=== PATIENT | male | born 1945 | race Caucasian/White ===

== ENCOUNTER 2016-11-28 16:51 | Emergency (ER) | payer OTHER | END 2016-11-28 17:05 | disposition left against medical advice (07) | LOC: CED 16:51 | DX: Z53.21 Procedure and treatment not carried out due to patient leaving prior to being seen by health care provider (principal) ==

== ENCOUNTER 2018-05-09 16:32 | Inpatient (IN) | payer OTHER ==
--- NOTE | 2018-05-09 17:04 | EDPHY ---
H & P Stated Complaint: Lower back pain Time Seen by Provider: 05/09/18 16:44 HPI/ROS: Chief Complaint: Neck pain, back pain, fever HPI: 72-year-old male with a history of lupus on multiple immunosuppressants including cellcept and plaquenil is presenting with neck pain stiffness and some subjective chills at home. He has a history of pinched nerves is neck is initially thought this was this. He has had the symptoms for couple weeks. The last 3 days he has had worsening stiffness in his neck and back. This is not similar to prior lupus flares. He was seen in his orthopedist office who sent him in for concerns about a possible meningitis. X-rays at orthopedist were negative. He has been neurologically intact. Patient states he did not feel well enough to go to work today which is very unusual. Mild headache. No nausea or vomiting. ROS: 10 systems were reviewed and were negative except those elements noted in the HPI. PMH: SLE, on multiple immunosuppressants including Cellcept and Plaquenil Social History: No smoking, no alcohol, no recreational drug use Family History: non-contributory Physical Exam: Gen: Awake, Alert, No Distress, warm to touch HEENT: Nose: no rhinorrhea Eyes: PERRLA, EOMI Mouth: Moist mucosa Neck: Stiff neck, positive meningismus, no JVD Chest: nontender, lungs clear to auscultation Heart: S1, S2 normal, no murmur Abd: Soft, non-tender, no guarding Back: no CVA tenderness, no midline tenderness Ext: no edema, non-tender Skin: no rash Neuro: CN II-XII intact, Sensation grossly intact, Strength 5/5 in bilateral upper and lower extremities - Personal History Current Tetanus/Diphtheria Vaccine: Yes - Medical/Surgical History Hx Asthma: No Hx Chronic Respiratory Disease: Yes Hx Diabetes: No Hx Cardiac Disease: Yes Hx Renal Disease: No Hx Cirrhosis: No Hx Alcoholism: No Hx HIV/AIDS: No Hx Splenectomy or Spleen Trauma: No Other PMH: 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 ortho surgery, LLE tendon repair, R rotator cuff surgery 01/07/2015 - Social History Smoking Status: Never smoked Constitutional: Initial Vital Signs Temperature (C) 37.6 C 05/09/18 16:35 Heart Rate 98 05/09/18 16:35 Respiratory Rate 18 05/09/18 16:35 Blood Pressure 130/84 H 05/09/18 16:35 O2 Sat (%) 95 05/09/18 16:35 O2 Delivery Mode Room Air Allergies/Adverse Reactions: CONTRAST DYE Allergy (Intermediate, Uncoded 05/09/18 16:40) Rash Home Medications: Medication Instructions Recorded Amlodipine Besylate 01/04/14 Aspirin 81mg (OTC) 01/04/14 Doxycycline Calcium 01/04/14 Lipitor 40 mg (RX) 01/04/14 Plaquenil 200 mg (RX) 01/04/14 Ramipril 01/04/14 Medical Decision Making Procedures: Procedure: Lumbar puncture. Indication: Possible meningitis After verbal informed consent from patient explaining the risks including infection, bleeding, and neurologic damage, a lumbar puncture was performed after the patient was prepped and draped in the usual fashion. The back was anesthetized with 1% lidocaine. Approximately 4 cc of clear fluid was obtained. Opening pressure was not obtained. There were no complications. The procedure was performed by myself. ED Course/Re-evaluation: 72-year-old with meningismus and immunosuppression. CSF is concerning. I have discussed with Dr. Bryant, infectious Disease. He is requesting that the patient receive vancomycin 1.5 g q.12 hours, ceftriaxone 2 g q.12 hours, and ampicillin 2 g q.4 hours. He is also requesting enterovirus and HSV. These have been ordered by me. Case discussed with the hospitalist. Will admit to their service for further care. Patient is awake alert and currently without complaint. - Data Points Laboratory Results: Laboratory Results 05/09/18 17:05 05/09/18 17:05 05/09/18 05/09/18 05/09/18 18:28 17:30 17:05 WBC RBC Hgb Hct MCV MCH MCHC RDW Plt Count MPV Neut % (Auto) Lymph % (Auto) [place] % (Auto) Eos % (Auto) Baso % (Auto) Nucleat RBC Rel Count Absolute Neuts (auto) Absolute Lymphs (auto) Absolute Monos (auto) Absolute Eos (auto) Absolute Basos (auto) Absolute Nucleated RBC Immature Gran % Immature Gran # RBC/WBC/PLT Morphology Platelet Estimate Sodium 132 mEq/L L mEq/L (135-145) Potassium 4.5 mEq/L mEq/L (3.3-5.0) Chloride 96 mEq/L L mEq/L (97-110) Carbon Dioxide 23 mEq/l mEq/l (22-31) Anion Gap 13 mEq/L mEq/L (6-14) BUN 16 mg/dL mg/dL (7-23) Creatinine 0.6 mg/dL L mg/dL (0.7-1.3) Estimated GFR > 60 Glucose 175 mg/dL H mg/dL (70-100) Calcium 8.7 mg/dL mg/dL (8.5-10.4) Fl Pathologist Review Pending CSF Tube Number 4 CSF Appearance CLEAR (CLEAR) CSF Color COLORLESS (COLORLESS) CSF Supernatant COLORLESS (COLORLESS) CSF WBC 19 /mm3 H /mm3 (0-5) CSF RBC 2 /mm3 H /mm3 (0-0) CSF Neutrophils % 23 % H % (0-6) CSF Lymphocytes % 47 % % (0-100) CSF Monos/Macrophage % 30 % % (0-45) CSF Glucose 71 mg/dL mg/dL (50-75) CSF Total Protein 68 mg/dL H mg/dL (12-60) Nasal Influenza A PCR Pending Nasal Influenza B PCR Pending 05/09/18 17:05 WBC 10.76 10^3/uL H 10^3/uL (3.80-9.50) RBC 3.48 10^6/uL L 10^6/uL (4.40-6.38) Hgb 11.7 g/dL L g/dL (13.7-17.5) Hct 33.7 % L % (40.0-51.0) MCV 96.8 fL fL (81.5-99.8) MCH 33.6 pg pg (27.9-34.1) MCHC 34.7 g/dL g/dL (32.4-36.7) RDW 12.1 % % (11.5-15.2) Plt Count 103 10^3/uL L 10^3/uL (150-400) MPV 10.3 fL fL (8.7-11.7) Neut % (Auto) 92.3 % H % (39.3-74.2) Lymph % (Auto) 3.1 % L % (15.0-45.0) [place] % (Auto) 4.1 % L % (4.5-13.0) Eos % (Auto) 0.0 % L % (0.6-7.6) Baso % (Auto) 0.1 % L % (0.3-1.7) Nucleat RBC Rel Count 0.0 % % (0.0-0.2) Absolute Neuts (auto) 9.93 10^3/uL H 10^3/uL (1.70-6.50) Absolute Lymphs (auto) 0.33 10^3/uL L 10^3/uL (1.00-3.00) Absolute Monos (auto) 0.44 10^3/uL 10^3/uL (0.30-0.80) Absolute Eos (auto) 0.00 10^3/uL L 10^3/uL (0.03-0.40) Absolute Basos (auto) 0.01 10^3/uL L 10^3/uL (0.02-0.10) Absolute Nucleated RBC 0.00 10^3/uL 10^3/uL (0-0.01) Immature Gran % 0.4 % % (0.0-1.1) Immature Gran # 0.04 10^3/uL 10^3/uL (0.00-0.10) RBC/WBC/PLT Morphology TNP Platelet Estimate TNP Sodium Potassium Chloride Carbon Dioxide Anion Gap BUN Creatinine Estimated GFR Glucose Calcium Fl Pathologist Review CSF Tube Number CSF Appearance CSF Color CSF Supernatant CSF WBC CSF RBC CSF Neutrophils % CSF Lymphocytes % CSF Monos/Macrophage % CSF Glucose CSF Total Protein Nasal Influenza A PCR Nasal Influenza B PCR Microbiology Results: MICROBIOLOGY 05/09/18 17:30 Cerebral Spinal Fluid Gram Stain - Final Medications Given: Discontinued Medications Sodium Chloride (Ns) 1,000 mls @ 0 mls/hr IV EDNOW ONE; Wide Open PRN Reason: Protocol Stop: 05/09/18 17:48 Last Admin: 05/09/18 17:48 Dose: 1,000 mls Departure - Departure Disposition: [facility] Inpatient Acute Condition: Fair Instructions: Bacterial Meningitis (ED) Referrals: MICHELE FREDERICK [Primary Care Provider] - As per Instructions
[2018-05-09 17:24] LABS: PLATELET COUNT 103 10^3/uL (150-400)
[2018-05-09] MEDS ORDERED: NS 1,000 ML IV ONE (17:47)
[2018-05-09] MEDS ORDERED: AMPICILLIN SODIUM 2 GM in NS 100 ML IV ONE (19:03)
[2018-05-09] MEDS ORDERED: VANCOMYCIN 1.5 GM in D5W 250 ML IV ONE (19:03)
[2018-05-09] MEDS ORDERED: DIAZEPAM 5 MG/ML 1 ML SYR ONE (19:17)
[2018-05-09] MEDS ORDERED: DIAZEPAM 5 MG/ML 1 ML SYR IVP ONE (19:21)
[2018-05-09] MEDS ORDERED: ONDANSETRON 4 MG/2 ML VIAL IVP PRN (21:07)
--- NOTE | 2018-05-09 21:23 | GHP ---
DATE OF ADMISSION: 05/09/2018 CHIEF COMPLAINT: Neck pain. HISTORY OF PRESENT ILLNESS: This is a 72-year-old male with history of lupus, on Plaquenil and mycop henolate, who was referred to the emergency department by his orthopedic surgeon after being evaluate d for neck pain earlier today. Patient states that he has been having worsening neck pain over the p ast week. He went to see his orthopedic surgeon, where he had x-rays done that did not reveal a caus e for his pain. He then developed some pretty significant chills and was sent to the emergency depar tme for further evaluation. During the time of my exam, he denies any headache. He denies any fev ers. He does feel chilled. Denies any new numbness, weakness. PAST MEDICAL HISTORY: 1. SLE. 2. Possible Lyme disease. 3. Hypertension. PAST SURGICAL HISTORY: Hamstring repair in 2013, right shoulder surgery. HOME MEDICATIONS: Amlodipine, ramipril, Plaquenil, Lipitor, doxycycline, aspirin, mycophenolate. ALLERGIES: Contrast dye. 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 Denies any alcohol, tobacco, or illicit drug use. FAMILY HISTORY: Reviewed and noncontributory. REVIEW OF SYSTEMS: Comprehensive 10-point review of systems was done and is negative, except as ment ioned in HPI. PHYSICAL EXAM: VITAL SIGNS: Blood pressure 121/70; pulse of 84; respiratory rate 18; O2 sat 88% on room air, 94% on 2 L. GENERAL: No acute distress. HEAD: Normocephalic, atraumatic. NECK: Rigid. CARDIOVASCULAR: S1, S2. No murmurs, rubs, clicks, gallops. No JVD. No lower extremity edema. P ULMONARY: Lungs are clear. No wheezes, rales, or rhonchi. ABDOMEN: Soft, nontender, nondistended. No guarding or rebound tenderness. Normoactive bowel sounds. EXTREMITIES: No clubbing or cyanosi s. NEURO: Cranial nerves 2 through 12 grossly intact. No focal motor or sensory deficits. SKIN: There is hyperpigmentation of the legs attributed to Plaquenil use. DIAGNOSTICS: WBC 10.76, hemoglobin 11.7, hematocrit 33.7, platelets 103. Sodium 132, potassium 4.5, chloride 96, BUN 16, creatinine 0.6, glucose 175. Influenza was negative. CSF was reviewed showing 19 WBCs 23% neutrophils. Protein was high at 68% with a glucose of 71. ASSESSMENT AND PLAN: 1. This is a 72-year-old immunosuppressed male on mycophenolate and Plaquenil presenting with neck s tiffness, most likely due to aseptic meningitis. a. Plan: The patient will be admitted to the medical-surgical floor. I discussed the case with Dr. Greenberg in the emergency department, who discussed the case with Dr. Herbert Bryant of Infectious Disease, who recommended ampicillin, ceftriaxone, and vancomycin, which will be continued until his cultures a re resulted. 2. History of systemic lupus erythematosus. 3. History of hypertension. a. Plan is to continue home medications. 4. Mild anemia, some signs of bleeding. 5. Mild hyponatremia. a. Plan: Will continue to monitor serum sodium. 6. Patient will be admitted to the hospital under inpatient status. /[id number]/MODL
[2018-05-09] MEDS: ACETAMINOPHEN 325 MG TAB PO PRN (21:56)
[2018-05-09] MEDS: DOXYCYCLINE HYCLATE 100 MG CAP/TAB PO SCH (22:30)
[2018-05-10] MEDS: AMPICILLIN SODIUM 2 GM in NS 100 ML IV SCH ×3 (02:06→10:49)
[2018-05-10] MEDS ORDERED: VANCOMYCIN 1.25 GM in NS 250 ML IV ONE (04:00)
[2018-05-10] MEDS: ACETAMINOPHEN 325 MG TAB PO PRN (05:23)
[2018-05-10 05:46] LABS: PLATELET COUNT 83 10^3/uL (150-400)
[2018-05-10] MEDS: RAMIPRIL 5 MG CAP PO SCH (09:30)
[2018-05-10] MEDS: amLODIPine BESYLATE 5 MG TAB PO SCH (09:31)
[2018-05-10] MEDS: ASPIRIN EC 81 MG TAB PO SCH (09:31)
[2018-05-10] MEDS: DOXYCYCLINE HYCLATE 100 MG CAP/TAB PO SCH ×2 (09:31→21:27)
--- NOTE | 2018-05-10 12:16 | ASMTCMCOM ---
CM Note CM Note Notes: Pt is a 72 y/o man admitted for meningitis. Pt has a hx of lupus, plaquenil and mycophenolate. ID has been consulted. Needs are TBD at this time. CM to follow. Plan: TBD Date Signed: 05/10/2018 12:15 PM Electronically Signed By:HECTOR Charles
--- NOTE | 2018-05-10 13:03 | GCON ---
INFECTIOUS DISEASE CONSULTATION DATE OF CONSULTATION: 05/10/2018 REFERRING PHYSICIAN: Miki Briones DO REASON FOR CONSULTATION: Meningitis. HISTORY OF PRESENT ILLNESS: Patient is a 72-year-old male with a past medical history of lupus on ch ronic Plaquenil and CellCept who I am asked to see in consultation for meningitis. Patient describes approximately 10 days ago that he was pushing a sled at the [facility] after which he developed neck pain. This pain had become progressive and was associated with neck stiffness. Over the last 2 days, he has had concomitant rigors, but does not feel like he has had any fever. He also has developed left- sided flank pain. He has had mild associated headache, but this has not been severe. Yesterday, he was seen by his orthopedic surgeon and recommended further evaluation in the emergency department. In the emergency department, he was noted to have a mild leukocytosis and mild thrombocytopenia with left shift. Given his neck pain, a lumbar puncture was performed, which showed 19 white blood cells with 23% neutrophils, 47% lymphocytes, 30% monocytes, glucose 71, protein 68 with negative gram stain . I was contacted based on his CSF findings and recommended empiric vancomycin, ampicillin, and ceft riaxone pending further data given his underlying immune suppression. Blood cultures were obtained a nd now 1 of 2 sets is showing growth of a streptococcal species, which by BCID is not group A, group B, or Streptococcus pneumoniae. Patient has been chronically on doxycycline for many years related t o his underlying lupus and prior diagnosis of Lyme disease. He has not experienced nausea, vomiting, or diarrhea. No recent skin injuries. No recent dental problems or dental work. The patient trave ls frequently on a domestic basis. Travel has included [place]. Given the above findings, I am now asked to assist in his ongoing management. PAST MEDICAL HISTORY: Lupus, hypertension, hyperlipidemia, hypercoagulability, Lyme disease. PAST SURGICAL HISTORY: Ruptured hamstring repair, rotator cuff surgery. CURRENT MEDICATIONS: Vancomycin 1.25 g IV q.8 hours, ampicillin 2 g IV q.4 hours, ceftriaxone 2 g IV q.12 hours, Norvasc 5 mg p.o. daily, aspirin 81 mg p.o. daily, Lipitor 40 mg p.o. q.h.s., doxycyclin e 50 mg p.o. b.i.d., ramipril 5 mg p.o. daily. ALLERGIES: CT contrast dye causes rash; patient does not think he has had any difficulty with MRI co ntrast dye. SOCIAL HISTORY: Patient does not smoke. He drinks alcohol twice weekly. No drug use. Travels freq uently throughout [facility], including [place], [place], [place], [place], [place]. No animal exposures. REVIEW OF SYSTEMS: Outside that noted in the HPI, the remainder of 10-system review is unremarkable. FAMILY HISTORY: Hypertension. PHYSICAL EXAMINATION: VITAL SIGNS: Temperature maximum 37.8, temperature current 36.7, heart rate 8 1, respiratory rate 18, blood pressure 119/64. GENERAL: Patient is well nourished, well developed i n no acute distress. He appears nontoxic. HEENT: There is no scleral icterus, conjunctival injecti on, or conjunctival petechiae. Oropharynx shows dry mucous membranes. Dentition is in fair repair. There is no nasal discharge. There is no tenderness over the frontal, maxillary, or mastoid area. NECK: There is point tenderness over the cervical spine. There is tenderness with flexion of the ce rvical spine. No lymphadenopathy or palpable thyromegaly. CHEST: Clear to auscultation bilaterally without adventitious sounds. The respiratory effort is normal. CARDIOVASCULAR: Regular rate and r hythm with a 2/6 systolic murmur heard throughout. No gallops or rubs noted. ABDOMEN: Soft, nonten carmelo, nondistended. There is no palpable organomegaly. Bowel sounds are present. BACK: There is no flank tenderness. MUSCULOSKELETAL: There is no tenderness over the left buttock or thigh. There i s no edema present. No cyanosis or clubbing present. Finger joint deformities present. SKIN: Ther e is violaceous hyperpigmentation bilaterally over the lower extremities which is chronic; no stigmat a of endocarditis. Skin is warm and dry to touch. NEUROLOGIC: The patient is alert and interacts a ppropriately with examiner. Cranial nerves 2-12 are grossly intact. Sensation is grossly intact. M uscle tone and bulk are normal. LYMPHATICS: No cervical or supraclavicular nodes. LABORATORY DATA: White blood cell count 9.6, hematocrit 30.7, platelets 83, neutrophils 89%. Serum creatinine is 0.7, bicarbonate 23. CSF showing 19 white blood cells, 2 red blood cells, 23% neutroph ils, 47% lymphocytes, 30% monocytes, glucose 71, protein 68. Influenza PCR is negative. CSF meningo encephalitis PCR panel was pending at [facility]. CSF Gram stain is negative with culture p ending. Blood cultures showing 1 of 2 sets with Streptococcus species not identified as group A, B, or pneumococcus by PCR testing. IMPRESSION: 1. Meningitis: Given the patient's presentation primarily with neck pain and rigors, I have concern s this may represent a parameningeal inflammatory process, particularly in light of patient's concomi tant bacteremia. Patient does not have headache as a prominent symptom as would typically be expecte d with meningitis. Given the patient's immunosuppression, he is at risk for meningitis, including op portunistic pathogens. Currently, he has a meningoencephalitis panel pending at [facility]. Given the positive blood culture, suspect other pathogen, such as Listeria or Streptococcus pneumon iae are unlikely. Patient will need MRI of the cervical spine to further assessed for process, such as diskitis, vertebral osteomyelitis, or epidural abscess. Viral etiologies or fungi, such as Crypto coccus or Coccidioides would be in the differential, although I suspect fungal etiology will be unlik gregorio. 2. Bacteremia: Most likely, this will be either an oropharyngeal strep versus streptococcal species , such as group C or G. Will continue ceftriaxone at doses that penetrate cerebrospinal fluid pendin g further evaluation. 3. Flank pain: Unclear etiology. No real findings on exam. If this persists, may ultimately need further imaging of this area to ensure no evidence of a focal process, such as psoas abscess. 4. Thrombocytopenia: No prior lab values to assess if this is related to his underlying lupus or co mponent of his infectious presentation. 5. Reported history of Lyme disease: Discussed briefly with patient that chronic Lyme disease is no t felt to be a distinct entity. RECOMMENDATIONS: 1. Continue ceftriaxone 2 g IV q.12 hours. 2. Discontinue vancomycin and ampicillin. 3. MRI of the cervical spine with IV contrast. 4. Await CSF meningoencephalitis panel from [facility]. 5. Follow up blood culture identification and susceptibility as available. 6. If flank pain persists, consider CT scan of abdomen and pelvis versus pelvic MRI to assess for et iology. 7. Followup CSF Gram stain and culture as available. 8. Further diagnostic testing based on above evaluation and clinical course. Thank you for this consultation. We will continue to follow the patient with you. /[id number]/MODL
[2018-05-10] MEDS ORDERED: GADOBUTROL 10 ML VIAL IVP ONE (13:20)
[2018-05-10] MEDS ORDERED: VANCOMYCIN 1.25 GM in NS 250 ML IV SCH (13:30)
--- NOTE | 2018-05-10 14:30 | HOSPPROG ---
Hospitalist Progress Note Assessment/Plan: 72yo M with SLE on immunosuppressants presents with several days of chills and worsening neck pain found to have meningitis and bacteremia. #Meningitis: Mild pleocytosis with increased neutrophils on CSF, gram stain negative for organisms. He is bacteremic as below and we will target treatment at that for now. Reports significant neck discomfort that warrants further evaluation. Otherwise, neurologically intact. He is at risk for opportunistic infections. - Meningoencephalitis panel pending, follow up CSF cultures - CTX 2g IV q12h - MRI cervical spine #Streptococcal bacteremia: Not group A, B, or pneumococcus. Possibly viridans. No clear oropharyngeal or GI source. He is not septic. - Antibiotics and imaging as above - Consider TTE - Will need repeat blood cultures to eval for clearance #Thrombocytopenia: Suspect medication induced. Not floridly septic to suspect consumption. No prior for comparison. Monitor daily. #Hyponatremia, mild: C/w hypovolemia. IVF and monitor. #Transaminitis: Likely medication (plaq, MMF) related. No e/o biliary obstruction. Trend. #SLE: No acute flare. Holding plaquenil, mycophenolate until infection controlled but should be restarted soon. #Chronic resp insufficiency: On baseline 2L. Suspect SLE-related ILD vs PH. Followed at [facility]. #Pulmonary hypertension: RVSP 35 on 2014 TTE. #CAD: No stent placement. Cont asa/statin. #HTN: Home meds. Dispo: Remain inpatient for management of above with IV antibiotics, further diagnostic studies. Subjective: Overall feeling ok, still with neck discomfort. Denies oral lesions/ infection, GI issues as of late. No fevers since admission. Objective: Vital Signs Temp Pulse Resp BP Pulse Ox 36.6 C 71 14 120/65 88 L 05/10/18 12:00 05/10/18 12:00 05/10/18 12:00 05/10/18 12:00 05/10/18 12:00 Laboratory Results 05/10/18 04:51 05/10/18 04:51 05/09/18 05/10/18 05/11/18 05:59 05:59 05:59 Intake Total 1600 Output Total 325 Balance 1275 - Physical Exam Constitutional: no apparent distress, appears nourished, not in pain Eyes: PERRL, anicteric sclera, EOMI Ears, Nose, Mouth, Throat: moist mucous membranes, hearing normal, ears appear normal, no oral mucosal ulcers Cardiovascular: regular rate and rhythym, no murmur, rub, or gallop, other ( prominent S2) Respiratory: no respiratory distress, other (occasional dry cough (chronic)) Gastrointestinal: normoactive bowel sounds, soft, non-tender abdomen, no palpable masses Genitourinary: no bladder fullness, no bladder tenderness, no renal bruits Skin: other (hyperpigmentation of BLE) Musculoskeletal: full muscle strength, no muscle tenderness, normal joint ROM Neurologic: AAOx3, sensation intact bilaterally Psychiatric: interacting appropriately, not anxious, not encephalopathic, thought process linear ICD10 Worksheet Patient Problems: Problems Problem Status Onset Meningitis Acute - ICD10 Problem Qualifiers (1) Meningitis
[2018-05-10] MEDS ORDERED: DIAZEPAM 5 MG TAB PO PRN (14:45)
--- NOTE | 2018-05-10 17:44 | PCMIDPN ---
Assessment/Plan: Please see my consultation earlier today for full details. Assessment/Plan: * C 1-2 prevertebral abscess with concomitant epidural inflammatory change: MRI shows evidence of prevertebral abscess with mild epidural inflammatory change. Likely associated with streptococcal bacteremia. Will obtain both ENT and neurosurgical consultations based on this finding. Patient with persistent left hip and pelvic pain. Will proceed with MRI of left hip and pelvis to assess for other foci of infection in the setting of bacteremia. Continue ceftriaxone 2 g IV q.12 hours. * CSF pleocytosis: CSF meningoencephalitis panel at [facility] is negative. Suspect pleocytosis likely represents parameningeal inflammatory process from prevertebral abscess and anterior epidural inflammatory change. 05/10/18 17:42 Objective: Vital Signs Temp Pulse Resp BP Pulse Ox 36.6 C 78 18 140/69 H 92 05/10/18 15:58 05/10/18 15:58 05/10/18 15:58 05/10/18 15:58 05/10/18 15:58 Laboratory Results 05/10/18 04:51 05/10/18 04:51 05/09/18 05/10/18 05/11/18 05:59 05:59 05:59 Intake Total 1600 Output Total 325 Balance 1275 ICD10 Worksheet Patient Problems: Problems Problem Status Onset Meningitis Acute
--- NOTE | 2018-05-10 19:51 | GCON ---
DATE OF CONSULTATION: 05/10/2018 HISTORY OF PRESENT ILLNESS: The patient is a 72-year-old gentleman with a history of lupus, who is on Plaquenil and CellCept. He was admitted to the hospital yesterday for possible meningitis. He had had 10 days of neck pain prior to admission with associated neck stiffness. He also feels that his right ear is slightly full feeling. We were consulted because of a small C1-C2 prevertebral abscess found on imaging. The patient is currently being seen by Dr. Herbert Bryant, and antibiotics have been started. Cell counts obtained showed leukocytosis and mild thrombocytopenia. PAST MEDICAL HISTORY: Significant for lupus, hypertension, hyperlipidemia, hypercoagulability, and Lyme disease. PAST SURGICAL HISTORY: A hamstring repair and rotator cuff surgery. CURRENT MEDICATIONS: Include vancomycin, ampicillin, and ceftriaxone as well as doxycycline plus is normal outpatient medications. ALLERGIES: To CT contrast dye. SOCIAL HISTORY: Patient is a nonsmoker. PHYSICAL EXAMINATION: GENERAL: Patient is alert and orientated, in no acute distress. HEAD: Atraumatic, normocephalic. EARS: EACs were clear. TMs were healthy and intact. NOSE: Clear. ORAL CAVITY: Oropharynx with severe dry mouth. NECK: Supple without any adenopathy. IMAGING: Review of his MRI shows a 3 x 0.5 cm perivertebral abscess at the level of C1-C2. This was reviewed with Dr. Chavez. ASSESSMENT AND PLAN: Patient with a small prevertebral abscess at C1-C2. Given the size, I feel that antibiotic treatment should be sufficient. Should anything worsen, please contact us. This case has been reviewed with Dr. Placido Chavez. I evaluated the images personally and the area of concern is very thin. There is not likely a drainable fluid collection. Given the site and difficulty in accessing the area, I feel it best to continue to treat with IV antibiotics, and re-evaluate if there is not response to the treatment. thank you, Placido Chavez MD /[id number]/MODL MTDD
--- NOTE | 2018-05-10 20:06 | GCON ---
NEUROSURGICAL CONSULTATION CHIEF COMPLAINT: Neck pain and stiffness. HISTORY OF PRESENT ILLNESS: Mr. Valles is a 72-year-old male with a history of lupus, for which he is on chronic Plaquenil and CellCept. He was working out at the [email or web address] several days ago when he dev eloped neck pain. Thereafter, he developed neck stiffness and rigors. He was evaluated in the emerg ency department, and his symptoms were suspicious for meningitis. An LP was obtained which showed 19 white cells, and he was started on empiric vancomycin, ampicillin, and ceftriaxone. The blood cultu res were subsequently positive for streptococcal species. An MRI of the cervical spine was obtained. This demonstrated some prevertebral soft tissue swelling from the clivus down to C3, and neurosurgi [place] consultation was requested. The patient currently complains of ongoing neck pain and stiffness. He does feel better than he did yesterday. He denies any upper extremity radicular pain, weakness, paresthesias, bowel/bladder problems, or ataxia. PAST MEDICAL HISTORY: 1. Lupus. 2. Hypertension. 3. Hyperlipidemia. 4. Hypercoagulability. 5. Lung disease. PAST SURGICAL HISTORY: Includes: 1. Ruptured hamstring repair. 2. Rotator cuff surgery. MEDICATIONS: Prior to admission are ramipril, doxycycline, Lipitor, aspirin, Norvasc. He is current ly on vancomycin, ampicillin, and ceftriaxone. ALLERGIES: CT contrast dye, which causes a rash. FAMILY HISTORY: Patient has no family history of spine problems. SOCIAL HISTORY: Patient is with grown children. He does not smoke, but does drink alcohol a pproximately twice weekly. He denies recreational drug use. REVIEW OF SYSTEMS: Negative. PHYSICAL EXAM: GENERAL: The patient is a 72-year-old male lying in bed in a mild amount of distress . HEAD, EYES, EARS, NOSE, AND THROAT: Negative to drainage. EXTREMITIES: [place], warm, and dry. NE UROLOGICAL: Patient is awake, alert, oriented x4. Pupils equal, round, reactive to light. Extraocu lar motions are intact. There is no evidence of facial droop. Tongue and uvula are midline. Spinal access muscles are intact. His motor strength is 5/5 in all muscle groups of his upper and lower ex tremities bilaterally. Sensation is grossly intact to light touch in his upper and lower extremities bilaterally. Deep tendon reflexes are 1/4 in the bilateral biceps, triceps, brachioradialis, patell ar, and Achilles. There is a negative Leeann's with no clonus. DIAGNOSTIC STUDIES: An MRI of the cervical spine from [facility] on 05/10/2018, shows preservation of the sagittal alignment. There are moderate multilevel degenerative changes. There is some prevertebral soft tissue enhancement and swelling that extends from the anterior portio n of C4 through C1 and toward the clivus. This also extends laterally toward the lateral masses of C 1 bilaterally. IMPRESSION: This is a 72-year-old male with neck pain, rigors, who has meningitis and a streptococca l bacteremia. His MRI shows a prevertebral soft tissue swelling enhancement from C4 through the cliv us, but he does not have any evidence of an epidural abscess at this point in time. He is neurologic ally stable. PLAN: All the above discussed in detail with the patient and his . This patient was seen and ex amined with Dr. Sanon. At this point time, the patient does feel slightly better since he martinez s been on the IV antibiotics. This prevertebral soft tissue swelling does not appear to involve any type of epidural abscess so we will follow him on a conservative basis. Should he have persistent fe vers or bacteremia, then we will consider a repeat MRI of the cervical spine with possible surgical i ntervention. For now, we will follow him and his progress. He may benefit from some p.o. muscle rel axant medications for his ongoing neck stiffness. Please call with any neurologic neurological darling genaro. /[id number]/MODL
[2018-05-10] MEDS: ATORVASTATIN CALCIUM 40 MG TAB PO SCH (21:27)
[2018-05-11] MEDS: ACETAMINOPHEN 325 MG TAB PO PRN (05:15)
--- NOTE | 2018-05-11 07:39 | SOAPPROG ---
SOAP Progress Note Assessment/Plan: Assessment: 72 yo M with meningitis, strep bacteremia and prevertebral soft tissue enhancement from clivus - C4 Plan: Neuro: stable and doing well overall. no evidence of epidural abscess on imaging so we will follow for now leukocytosis improved, no more fevers, on rocephin PT/OT/ST will continue to follow please call with neuro changes discussed with Dr Humphreys 05/11/18 07:34 05/11/18 07:40 Subjective: neck stiffness about the same, no arm pain, no weakness. Objective: Vital Signs Temp Pulse Resp BP Pulse Ox 37.0 C 69 16 120/62 90 L 05/11/18 04:00 05/11/18 04:00 05/11/18 04:00 05/11/18 04:00 05/11/18 04:00 Laboratory Results 05/11/18 05:00 05/11/18 05:24 05/10/18 05/11/18 05/12/18 05:59 05:59 05:59 Intake Total 1600 650 Output Total 325 Balance 1275 650 AAOx4, +FC PERRL, EOMI, no facial droop 5/5 + light touch ICD10 Worksheet Patient Problems: Problems Problem Status Onset Meningitis Acute
[2018-05-11] MEDS: DOXYCYCLINE HYCLATE 100 MG CAP/TAB PO SCH ×2 (07:49→21:28)
[2018-05-11] MEDS: ASPIRIN EC 81 MG TAB PO SCH (07:50)
[2018-05-11] MEDS: RAMIPRIL 5 MG CAP PO SCH (07:50)
[2018-05-11] MEDS: amLODIPine BESYLATE 5 MG TAB PO SCH (07:51)
--- NOTE | 2018-05-11 09:38 | PCMIDPN ---
Assessment/Plan: 1. Streptococcal bacteremia with prevertebral abscess at C1/C2 in immunocompromised host: Etiology of bacteremia unclear. Streptococcus has yet to be speciated. Patient reports last colonoscopy was approximately 3 years ago, and was normal. Does have a recent 30 lb weight loss, but states that this was intentional. Also has prominent heart murmur on exam; will check TTE for completeness. Repeat blood cultures today, as well as baseline inflammatory markers. Continue high-dose ceftriaxone as is. 2. Mild left pelvic pain: MRI of the pelvis and hip ordered. Over 25 min spent with this patient today. Subjective: Patient states his neck pain is better today. Still having some mild left hip discomfort, which he states has been going on for 2-3 weeks now. Reports last colonoscopy 3 years ago, and was normal. No history of endocarditis. Objective: Ceftriaxone 2 g IV q.12 hours day 2 Afebrile Vital Signs Temp Pulse Resp BP Pulse Ox 36.3 C 68 12 118/66 92 05/11/18 08:00 05/11/18 08:00 05/11/18 08:00 05/11/18 08:00 05/11/18 08:00 Laboratory Results 05/11/18 05:00 05/11/18 05:24 05/10/18 05/11/18 05/12/18 05:59 05:59 05:59 Intake Total 1600 650 Output Total 325 Balance 1275 650 Blood cultures May 09 x2 Gram-positive cocci in chains - Physical Exam General Appearance: alert, no apparent distress EENT: other (Dry mucous debris throughout oropharynx. No obvious oral lesions.) , No scleral icterus Neck: supple Cardiac/Chest: systolic murmur (Alger best at apex) Extremities: other (Left hip with full range of motion, no obvious overlying skin changes or swelling.) Abdomen: non-tender, soft Skin: other (Hyper pigmentation lower extremity secondary to chronic Plaquenil use. No stigmata of endocarditis) Neuro/Psych: oriented x 3 ICD10 Worksheet Patient Problems: Problems Problem Status Onset Meningitis Acute
--- NOTE | 2018-05-11 16:27 | ECHO ---
[email or web address] [address] [address] Main: [phone] Fax: Transthoracic Echocardiogram Name: MY HOLM MR#: [id number] Study Date: 05/11/2018 Study Time: 10:09 AM Date of : 1945 Age: 72 year(s) Height: 175.3 cm (69 in.) Weight: 78.47 kg (173 lb.) BSA: 1.94 m2 Gender: Male Examination: Echo Indication: Streptococcal bactermia, prevertebral abscess, Eval for endocarditis Image Quality: Contrast: Requested by: Hien Lock BP: 118 mmHg/66 mmHg Heart Rate: Rhythm: Indication: Streptococcal bactermia, prevertebral abscess, Eval for endocarditis Procedure Staff Doubling Machine Operator: Reji Sorenson RDCS Reading Physician: Dmitry Bernal MD Requesting Provider: Conclusions: Normal size left ventricle. Normal global systolic LV function. EF is 66 %. The left atrium is moderately dilated. There is posterior mitral anular calcification. The posterior mitral valve leaflet is thickened with reduced motion. There is moderate mitral regurgitation. Can not exclude a vegetation on this valve.. There is mild thickening of the aortic cusps. No aortic valve stenosis is present. There is no aortic valve regurgitation. Right Ventricular systolic pressure is measured at 62 mmHg. When compared to the 07/05/17 study. Pulmonary hypertension is now appreciated. Aortic and mitral valve findings are similiar. Consdier SHELTON to further evaluate the patients condition given aortic and mitral valve are difficult to evaluate given calcification and leaflet thickening. Measurements: Chambers Valvular Assessment AV/MV Valvular Assessment TV/PV Normal Normal Normal Name Value Range Name Value Range Name Value Range Ao Kavita (MM): 3.9 cm (2.2 cm-3.7 AV Vmax: 1.86 m/s (1 m/s-1.7 TR Vmax: 3.76 mm/s ( - ) cm) m/s) TR PGmax: 57 mmHg ( - ) IVSd (2D): 1.0 cm (0.6 cm-1.1 AV maxP mmHg ( - ) syst. PAP: 62 mmHg ( - ) cm) AV meanP mmHg ( - ) PV Vmax: 0.81 m/s (0.6 m/s-0.9 LVDd (2D): 5.1 cm (4.2 cm-5.9 PETER (VTI): 1.9 cm ( - ) m/s) cm) MV E Vmax: 1.22 m/s ( - ) PV PGmax: 3 mmHg ( - ) LVDs (2D): 3.3 cm (2.1 cm-4 MV A Vmax: 0.67 m/s ( - ) cm) MV E/A: 1.82 ( - ) LVPWd (2D): 1.1 cm (0.6 cm-1 cm) MV meanP mmHg ( - ) LVOTd 2.1 cm 2.1 cm mm MVA (Vmax): 1.9 m/s ( - ) LVEF (2D): 66 (>=54 %) Patient: MY HOLM Study Date: 05/11/2018 Page 1 of 2 10:09 AM Continued Measurements: Chambers Valvular Assessment AV/MV Valvular Assessment TV/PV Name Value Name Value Name Value LADs: 4.6 cm MV Annulus: 3.6 cm CVP (est.): 5 mmHg LADs Lon.9 cm MV E' Septal: 0.08 m/s LA Area: 26.0 cm2 MV E/E' Septal: 15.60 LA Volume: 91 ml MV E/E' Lateral: 16.70 LA Volume Index: 46.9 ml/m2 MV VTI: 37.30 cm MR ERO: 0.120 cm2 MR PISA radius: 6 mm MR Reg. Volume: 19 ml MR Reg. Fraction: 5 % Findings: Left Ventricle: Normal size left ventricle. No LV hypertrophy. Normal global systolic LV function. EF is 66 %. Right Ventricle: Normal size right ventricle. Normal RV function. Left Atrium: The left atrium is moderately dilated. Right Atrium: The right atrium is normal in size. Mitral Valve: Moderate mitral valve regurgitation is present. There is posterior mitral anular calcification. The posterior mitral valve leaflet is thickened with reduced motion. There is moderate mitral regurgitation. Can not exclude a vegetation on this valve.. Aortic Valve: The aortic valve is tri-leaflet. There is mild thickening of the aortic cusps. No aortic valve stenosis is present. There is no aortic valve regurgitation. Tricuspid Valve: The tricuspid valve appears normal. Moderate tricuspid regurgitation is present. Right Ventricular systolic pressure is measured at 62 mmHg. Pulmonic Valve: The pulmonic valve is normal in appearance and function. Aorta: The aorta is normal. Pericardium: No pericardial effusion. Exam Comments: (No Signature Object) Patient: MY HOLM Study Date: 05/11/2018 Page 2 of 2 10:09 AM D:_[id number]
--- NOTE | 2018-05-11 16:58 | ASMTCMCOM ---
CM Note CM Note Notes: Pt lives independently at his home with his , Yeni #[phone]. 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 Antibiotics are presently PO. No CM needs anticipated. CM will follow for changes. D/C plan: Anticipate independent. Date Signed: 05/11/2018 04:57 PM Electronically Signed By:Karie Dean
--- NOTE | 2018-05-11 18:41 | HOSPPROG ---
Hospitalist Progress Note Assessment/Plan: DIAGNOSES: * acute streptococcal bacteremia * prevertebral abscess upper cervical related to above * meningitis, question actual CSF infection verses irritation from abscess * concern for bacterial endocarditis with significant worsening of mitral regurgitation and pulmonary hypertension, TTE unable to rule out vegetation * immune suppression from medications for lupus * chronic lupus * Mycophenolate and Plaquenil on hold at the moment * severe pulmonary hypertension * valvular heart disease with mitral regurgitation * coronary artery disease, no stents in place PLANS: * Continue current antibiotics; duration will depend on findings of further assessments and clearance of cultures * MRI of pelvis pending * Plan on SHELTON tomorrow * Review with Cardiology, Infectious Disease SUBJECTIVE: Some minor improvement in his neck pain and headache and ability to move Unchanged pain at the left hip pelvis area Appetite OK Rigors have diminished since admission OBJECTIVE Vitals reviewed: Stable without fever so far today Exam: alert oriented I do not see evidenc of embolic events at the fingernails, fingertips, or intraoral mucosa No focal neurologic changes, no confusion skin warm dry color ok resps not labored lungs clear BSs heart regular abd soft nondistended nontender, bowel sounds present limbs warm, no edema iv site ok Lab data: Unremarkable chemistry panel other than very mild elevation of AST White blood cell count notably better, he hemoglobin stable at 10+ platelets improved Echocardiogram: Worsened mitral regurgitation with now more severe pulmonary hypertension at 68 Unable to rule out vegetation on mitral valve by this echo Objective: Vital Signs Temp Pulse Resp BP Pulse Ox 36.3 C 66 14 148/75 H 95 05/11/18 16:00 05/11/18 16:00 05/11/18 16:00 05/11/18 16:00 05/11/18 16:00 Laboratory Results 05/11/18 10:00 05/11/18 05:24 05/10/18 05/11/18 05/12/18 06:59 06:59 06:59 Intake Total 1600 650 Output Total 325 Balance 1275 650 - Time Spent With Patient Time Spent with Patient: greater than 35 minutes Time Spent with Patient: Greater than 35 minutes spent on this patients care, greater than 50% of time spent counseling, educating, and coordinating care regarding the above mentioned plan. ICD10 Worksheet Patient Problems: Problems Problem Status Onset Meningitis Acute
[2018-05-11] MEDS ORDERED: GADOBUTROL 10 ML VIAL IVP ONE (19:52)
[2018-05-11] MEDS: ATORVASTATIN CALCIUM 40 MG TAB PO SCH (21:28)
[2018-05-12] MEDS: amLODIPine BESYLATE 5 MG TAB PO SCH (07:24)
[2018-05-12] MEDS: DOXYCYCLINE HYCLATE 100 MG CAP/TAB PO SCH ×2 (07:25→20:54)
[2018-05-12] MEDS: RAMIPRIL 5 MG CAP PO SCH (07:25)
--- NOTE | 2018-05-12 09:28 | NEUSURGPN ---
Assessment/Plan: Assessment: 72 yo M with meningitis, strep bacteremia and prevertebral soft tissue enhancement from clivus - C4 Plan: Neuro: stable and doing well overall. no evidence of epidural abscess on imaging Blood cx + for strep, CSF no growth to date leukocytosis improved, no more fevers, on rocephin PT/OT/ST NS will sign off and follow peripherally please call with neuro changes discussed with Dr Humphreys Subjective: Pt resting in bed, feeling ok this am. Denies any neck pain, arm or leg weakness , or radiculopathy/numbness in extremities Objective: AAOx3 NAD VSS MAEx4 Motor 5/5 BUE/BLE +LT Urinary Catheter in Place: No - Physician Discussed Patient with .: Fab Neurosurgery Physical Exam - Vitals, I&O, Labs I and O 05/11/18 05/12/18 05/13/18 05:59 05:59 05:59 Intake Total 650 Balance 650 Intake: Oral (ml) 500 IV Infused (ml) 150 Ampicillin Sodium 2 gm In 100 Ns 100 ml @ 220 mls/hr IV Q4H EDSON Rx#:[id number] cefTRIAXone 2 gm In Ns 50 50 ml @ 100 mls/hr IV Q12 EDSON Rx#:[id number] Other: Intake Quantity Yes Yes Sufficient Number of Voids Toilet 1 Urinal 2 Microbiology 05/09/18 20:00 Blood Culture - Final Blood Streptococcus Anginosus Group Vital Signs Temp Pulse Resp BP Pulse Ox 36.4 C 75 20 129/71 H 92 05/12/18 07:31 05/12/18 07:31 05/12/18 07:31 05/12/18 07:31 05/12/18 07:31 Laboratory Results 05/11/18 10:00 05/11/18 05:24 ICD10 Worksheet Patient Problems: Problems Problem Status Onset Meningitis Acute
--- NOTE | 2018-05-12 10:17 | PCMIDPN ---
Assessment/Plan: 1. Strep anginosus bacteremia with prevertebral abscess at C1/C2 as well as left iliacus/psoas myositis in immunocompromised host: Continue medical management of the prevertebral abscess. Appreciate neurosurgical input. Etiology of bacteremia remains unclear. Do not feel that this organism came from the oropharynx and invaded posteriorly to C1/C2; rather , given patient's noted neck injury at his gym, suspect this area is a "locus minoris resistentiae" from a primary bacteremia. With abnormal findings on TTE , a SHELTON will be performed today. Also, given propensity for abscess formation with strep anginosus and patient's noted recent 30 lb weight loss, feel that a CT scan of the abdomen and pelvis with oral and IV contrast is prudent, even with no abdominal symptoms. This will need to be ordered for tomorrow. (Do not want overload him with procedures today/imbibing oral contrast after SHELTON, etc). Continue high-dose ceftriaxone as is. Repeat blood cultures so far no growth. Over 25 min spent with this patient today. 05/12/18 10:19 Subjective: Events of past 24 hr noted. TTE revealed some thickening of the mitral valve with moderate regurgitation, as well as some abnormalities on the aortic valve. Patient have SHELTON today. MRIs of the pelvis and hip show inflammation of the left iliacus and psoas muscles, as well as a left gluteus minimus tendinopathy. Patient has"cotton mouth". Feels thirsty. No diarrhea on the antibiotics. Understands plan for today with SHELTON. Talked to him about a CT scan of the abdomen and pelvis moving forward and he is agreeable to that tomorrow. Neck pain is stable. No new neurologic symptoms. Objective: Vital Signs Temp Pulse Resp BP Pulse Ox 36.4 C 75 20 129/71 H 92 05/12/18 07:31 05/12/18 07:31 05/12/18 07:31 05/12/18 07:31 05/12/18 07:31 Microbiology 05/09/18 20:00 Blood Culture - Final Blood Streptococcus Anginosus Group Laboratory Results 05/11/18 10:00 05/11/18 05:24 05/11/18 05/12/18 05/13/18 05:59 05:59 05:59 Intake Total 650 Balance 650 ESR 37 MM/HR (0-20) H 05/11/18 10:00 C-Reactive Protein 217.4 mg/L (<10.0) H 05/11/18 10:00 - Physical Exam General Appearance: alert, no apparent distress, other (Very dry mouth) EENT: No thrush Respiratory: lungs clear Cardiac/Chest: systolic murmur ([place] best at apex) Abdomen: non-tender, soft Skin: other, No embolic lesions (Hyper pigmentation lower extremities bilaterally is old, secondary to Plaquenil) Neuro/Psych: no motor/sensory deficits, oriented x 3 ICD10 Worksheet Patient Problems: Problems Problem Status Onset Meningitis Acute
[2018-05-12] MEDS ORDERED: NS 500 ML IV ONE (11:13)
--- NOTE | 2018-05-12 12:42 | PDANEPAE ---
ANE History of Present Illness SHELTON ANE Past Medical History - Cardiovascular History Hx Hypertension: Yes Hx Arrhythmias: No Hx Chest Pain: No Hx Coronary Artery / Peripheral Vascular Disease: No Hx CHF / Valvular Disease: Yes Hx Palpitations: No Cardiovascular History Comment: HIGH CHOL. MITRAL REGURG - Pulmonary History Hx COPD: No Hx Asthma/Reactive Airway Disease: No Hx Recent Upper Respiratory Infection: No Hx Oxygen in Use at Home: Yes O2 in Use at Home (L/minute): 2 Hx Sleep Apnea: Yes Sleep Apnea Screening Result - Last Documented: Positive Pulmonary History Comment: PULM HTN. SYL MILD- O2 AT NIGHT 2 L/M. COULDNT MARISA CPAP. DENIES SOB W STAIRS. LUNG DAMAGE, NOT PROCESSING O2 CORRECTLY- DEMINISHED VOL CAPACITY BETWEEN 25-33 PERCENT. 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 ? LYME DISEASE. RETINAL VASCULITIS. ANTI-CARDIO LIPIN ANTIBODY CLOTS X 2 IN 1993 RECENTLY RETESTED RESULTS NEG. EYES POOR FOCUSING. HAIRS HYPERPIGMENTED - Chronic Pain History Chronic Pain: Yes (RT SHLDR) - Surgical History Prior Surgeries: LT HAMSTRING REPAIR 12/2013. SAURAV ING HERNIA REP. TONSILS AGE 15. CUT CHILD, CLAMP TO STOP VBLEEDING ANE Review of Systems Review of Systems: - Exercise capacity METS (RN): 3 METS ANE Patient History - Allergies Allergies/Adverse Reactions: CONTRAST DYE Allergy (Intermediate, Uncoded 05/09/18 16:40) Rash - Home Medications Home Medications: Aspirin EC [Aspirin EC 81 mg (*)] 81 mg PO DAILY 05/09/18 [Last Taken 05/09/18] Atorvastatin Calcium [Lipitor 40 mg (*)] 40 mg PO HS 05/09/18 [Last Taken ] Doxycycline Hyclate 50 mg PO BID 05/09/18 [Last Taken 05/09/18 09:00] Hydroxychloroquine Sulfate [Plaquenil 200 mg (*)] 200 mg PO BID 05/09/18 [Last Taken 05/09/18 09:00] Mycophenolate Mofetil 1,000 mg PO BID 05/09/18 [Last Taken 05/09/18 09:00] Ramipril [Altace 5mg (*)] 5 mg PO DAILY 05/09/18 [Last Taken 05/08/18] amLODIPine BESYLATE [Norvasc 5 mg (*)] 5 mg PO DAILY 05/09/18 [Last Taken ] - NPO status NPO Since - Liquids (Date): 05/12/18 NPO Since - Liquids (Time): 00:00 NPO Since - Solids (Date): 05/12/18 NPO Since - Solids (Time): 00:00 - Smoking Hx Smoking Status: Never smoked - Family Anes Hx Family Hx Anesthesia Complications: NONE ANE Labs/Vital Signs - Labs Result Diagrams: 05/11/18 10:00 05/12/18 09:52 - Vital Signs Blood Pressure: 129/71 Heart Rate: 75 Respiratory Rate: 20 O2 Sat (%): 92 Height: 175.26 cm Weight: 78.925 kg ANE Physical Exam - Airway Neck exam: decreased ROM (due to neck pain) Mouth exam: normal dental/mouth exam (upper caps) - Pulmonary Pulmonary: clear to auscultation - Cardiovascular Cardiovascular: regular rate and rhythym - ASA Status ASA Status: III ANE Anesthesia Plan Anesthesia Plan: GA with mask
[2018-05-12] MEDS: ASPIRIN EC 81 MG TAB PO SCH (12:43)
[2018-05-12] MEDS ORDERED: PROPOFOL 200 MG/20 ML VIAL ONE (12:44)
--- NOTE | 2018-05-12 12:52 | PDHPUP ---
History & Physical Update H&P update statement: This history and physical update is based on an assessment of the patient which was completed after admission or registration (within 24 hours), but prior to the surgery/procedure. H&P update: H&P reviewed & patient examined, no change in patient's condition since H&P completed
--- NOTE | 2018-05-12 12:56 | HOSPPROG ---
Hospitalist Progress Note Assessment/Plan: DIAGNOSES: * acute streptococcal bacteremia * prevertebral abscess upper cervical related to above * ileus psoas myositis likely also due to strep infection * meningitis, question actual CSF infection verses irritation from abscess * concern for bacterial endocarditis with significant worsening of mitral regurgitation and pulmonary hypertension, TTE unable to rule out vegetation * immune suppression from medications for lupus * chronic lupus * Mycophenolate and Plaquenil on hold at the moment * severe pulmonary hypertension * valvular heart disease with mitral regurgitation * coronary artery disease, no stents in place PLANS: * Continue current antibiotics; duration will depend on findings of further assessments and clearance of cultures * Plan on SHELTON to be done today * Review with Cardiology, Infectious Disease after SHELTON, and will determine duration of antibiotic therapy SUBJECTIVE: Some continued improvement in pain and is more mobile today, getting up with assistance and ambulating across room with his walker No chills or sweats No new areas of pain OBJECTIVE Vitals reviewed: Stable without fever so far today Exam: alert oriented No focal neurologic changes, no confusion Moving more easily but still needing assistance to get from supine to the side of bed skin warm dry color ok resps not labored lungs clear BSs heart regular abd soft nondistended nontender, bowel sounds present limbs warm, no edema iv site ok Lab data: Unremarkable metabolic panel, persisting mild elevation of transaminases MRI pelvis and lumbar spine shows evidence of myositis at the iliopsoas on left , some small bilateral hip joint effusions and some bursitis at trochanteric location but no osteo or abscesses Objective: Vital Signs Temp Pulse Resp BP Pulse Ox 36.4 C 75 20 129/71 H 92 05/12/18 07:31 05/12/18 12:42 05/12/18 12:42 05/12/18 12:42 05/12/18 12:42 Microbiology 05/09/18 20:00 Blood Culture - Final Blood Streptococcus Anginosus Group Laboratory Results 05/11/18 10:00 05/12/18 09:52 05/11/18 05/12/18 05/13/18 06:59 06:59 06:59 Intake Total 650 Balance 650 - Time Spent With Patient Time Spent with Patient: greater than 35 minutes Time Spent with Patient: Greater than 35 minutes spent on this patients care, greater than 50% of time spent counseling, educating, and coordinating care regarding the above mentioned plan. ICD10 Worksheet Patient Problems: Problems Problem Status Onset Meningitis Acute
--- NOTE | 2018-05-12 13:39 | POSTANESTH ---
Post Anesthetic Evaluation Cardiovascular Status: Similar to Pre-Op Cond Respiratory Status: Similar to Pre-op Cond. Level of Consciousness/Mental Status: Can Participate in Eval Pain Control: Adequate, Prn Tx Ordered Nausea/Vomiting Control: Adequate, Prn Tx Ordered Complications Possibly Related to Anesthesia: None Noted
--- NOTE | 2018-05-12 14:39 | PDCTREPORT ---
Cardiothoracic Procedure Rpt Cardiothoracic Procedure Report: 72 year old with strep endocarditis Images reviewed with Dr. Garcia Pt has not had emoboli, or CHF I would agree medical therapy is best first option Surgery could be considered if he fails medical therapy Patient Problems: Problems Problem Status Onset Meningitis Acute
--- NOTE | 2018-05-12 15:04 | CPR ---
DATE OF PROCEDURE: 05/12/2018 PROCEDURE PERFORMED: Transesophageal echocardiogram. INDICATION FOR PROCEDURE: Bacteremia, inconclusive transthoracic echocardiogram for endocarditis. PROCEDURE: After informed consent was obtained for transesophageal echocardiogram as well as anesthe sarahi, patient was sedated with Propofol. A SHELTON probe was passed without incident. SHELTON wer e used to take detailed images of primarily all valvular structures. Please see complete echocardiog percy for full details. Mitral valve demonstrated mobile echodensities on both anterior and posterior leaflets, with moderate to severe mitral regurgitation consistent with endocarditis. The remainder of the valves did not de monstrate any evidence of endocarditis. At the time of the , patient is recovering from anesthesia without difficulty. PLAN: We will contact Infectious Disease physician ordering the study, Dr. Lock, and update her calvin snowden findings. /[id number]/MODL
--- NOTE | 2018-05-12 15:28 | ASMTCMCOM ---
CM Note CM Note Notes: Pt had cardiology work up and has vegetation on mitral valve. Sounds like they will take a medical approach 1st. Pt still considered independent and will dc home w/support of when medically stable. CM available for any changes. DC Plan: Independent Date Signed: 05/12/2018 03:14 PM Electronically Signed By:Candace Díaz RN
--- NOTE | 2018-05-12 17:16 | ECHO ---
[email or web address] [address] Main: [phone] Fax: Transthoracic Echocardiogram Name: MY HOLM MR#: [id number] Study Date: 05/12/2018 Study Time: 12:43 PM Date of : 1945 Age: 72 year(s) Height: ( ) Weight: ( ) BSA: Gender: Male Examination: SHELTON Indication: Eval Mitral Valve Image Quality: Contrast: Requested by: Miki Briones BP: / Heart Rate: Rhythm: Indication: Eval Mitral Valve Procedure Staff Steam Heating Installer: Reji Sorenson RDCS Reading Physician: Mario Garcia MD Requesting Provider: Measurements: Chambers Valvular Assessment AV/MV Valvular Assessment TV/PV Normal Normal Normal Name Value Range Name Value Range Name Value Range TR Vmax: 2.31 mm/s ( - ) TR PGmax: 21 mmHg ( - ) syst. PAP: 26 mmHg ( - ) Continued Measurements: Valvular Assessment TV/PV Name Value CVP (est.): 5 mmHg Findings: Left Ventricle: Normal global systolic LV function. Mitral Valve: Moderate to severe mitral regurgitation. There are two hypermobile masses consistent with vegetation on the anterior and posterior mitral valve leaflets.. Aortic Valve: The aortic valve is tri-leaflet. There is no significant aortic valve regurgitation. No aortic valve stenosis is present. There is no aortic valve vegetation. Tricuspid Valve: Mild tricuspid regurgitation is present. No tricuspid valve vegetation. Pulmonic Valve: The pulmonic valve is normal in appearance and function. Aorta: Patient: MY HOLM Study Date: 05/12/2018 Page 1 of 2 12:43 PM The aorta is normal. Pericardium: No pericardial effusion. (No Signature Object) Patient: MY HOLM Study Date: 05/12/2018 Page 2 of 2 12:43 PM [id number]
[2018-05-12] MEDS: ATORVASTATIN CALCIUM 40 MG TAB PO SCH (20:53)
[2018-05-12] MEDS: ACETAMINOPHEN 325 MG TAB PO PRN (20:59)
--- NOTE | 2018-05-13 07:58 | CPEKG ---
Test Reason : OPEN Blood Pressure : / mmHG Vent. Rate : 067 BPM Atrial Rate : 067 BPM P-R Int : 170 ms QRS Dur : 098 ms QT Int : 498 ms P-R-T Axes : 013 -25 117 degrees QTc Int : 526 ms Sinus rhythm Ventricular premature complex Borderline left axis deviation Borderline abnrm T, anterolateral leads Confirmed by Yair Machuca ([id number]) on 05/13/2018 7:58:25 AM Referred By: Confirmed By:Yair Machuca
[2018-05-13] MEDS: ASPIRIN EC 81 MG TAB PO SCH (08:56)
[2018-05-13] MEDS: DOXYCYCLINE HYCLATE 100 MG CAP/TAB PO SCH ×2 (08:56→21:13)
[2018-05-13] MEDS: RAMIPRIL 5 MG CAP PO SCH (08:57)
[2018-05-13] MEDS: amLODIPine BESYLATE 5 MG TAB PO SCH (08:57)
[2018-05-13] MEDS: ACETAMINOPHEN 325 MG TAB PO PRN (09:15)
[2018-05-13] MEDS ORDERED: ALTEPLASE 2 MG VIAL IVP PRN (09:50)
--- NOTE | 2018-05-13 09:53 | PCMIDPN ---
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 Chronic immune compromise likely contributing to extent of disease. Mildly abnormal CSF due to epidural disease. Source of infection is not entirely clear at this point. O2 requirements close to baseline. 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: Mycophenolate and Plaquenil on hold at the moment meds ceftriaxone 2gm IV q12h micro 05/09 Blood cx (2) streptococcus anginosus NUPUR ceftriaxone <=0.125, PCN 0.0625 05/11 blood x (2) NGTD 05/09 CSF culture: Negative Subjective: patient still with some R neck pain and L hip, side pain - feeling a bit better asking about discharge and when he can return to work Objective: Vital Signs Temp Pulse Resp BP Pulse Ox 36.3 C 74 16 143/75 H 93 05/13/18 08:00 05/13/18 08:00 05/13/18 08:00 05/13/18 08:00 05/13/18 08:00 Microbiology 05/09/18 20:00 Blood Culture - Final Blood Streptococcus Anginosus Group Laboratory Results 05/11/18 10:00 05/12/18 09:52 05/12/18 05/13/18 05/14/18 05:59 05:59 05:59 Intake Total 400 Balance 400 ESR 37 MM/HR (0-20) H 05/11/18 10:00 C-Reactive Protein 217.4 mg/L (<10.0) H 05/11/18 10:00 - Physical Exam General Appearance: alert, no apparent distress, non-toxic EENT: pale conjunctiva, No conjunctival petechiae Respiratory: lungs clear, No accessory muscle use Cardiac/Chest: regular rate, rhythm, diastolic murmur, systolic murmur Extremities: No pedal edema Abdomen: non-tender, soft Skin: No rash, No embolic lesions Neuro/Psych: alert, normal mood/affect, oriented x 3 - Time Spent With Patient Time Spent with Patient: greater than 35 minutes Time Spent with Patient: Greater than 35 minutes spent on this patients care, greater than 50% of time spent counseling, educating, and coordinating care regarding the above mentioned plan. ICD10 Worksheet Patient Problems: Problems Problem Status Onset Meningitis Acute
[2018-05-13] MEDS ORDERED: DEXAMETHASONE 10 MG/ML VIAL IVP ONE (10:30)
[2018-05-13] MEDS ORDERED: diphenhydrAMINE 25 MG CAP PO ONE (10:30)
[2018-05-13] MEDS ORDERED: IOPAMIDOL (ISOVUE-300) 100 ML BTL ONE (11:51)
--- NOTE | 2018-05-13 13:45 | PDIAF ---
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 PICC Care - Routine: Yes - Orders Services needed: Home Care, Registered Nurse Home Care Face to Face: I certify that this patient was under my care and that I had the required [id number] encounter meeting the encounter requirements on the discharge day. My findings support the fact that the patient is homebound as defined in Home Care Face to Face Continued: CMS Chapter 7 Medicare Benefits Manual 30.1.1 , The condition of the patient is such that there exists a normal inability to leave home and consequently, leaving home would require a considerable and taxing effort. Isolation Type: None - Labs/Radiology CBC w/diff Date: 05/22/18 (Weekly Tuesday) CMP Date: 05/22/18 (Weekly Tuesday) CRP Date: 05/22/18 (Weekly Tuesday) Call or Fax Lab and Imaging Results to: Herbert Bryant MD [facility] at fax [phone] - Follow Up Care Current Providers and Referrals: MICHELE FREDERICK [Primary Care Provider] - As per Instructions Herbert Bryant MD [Medical Doctor] - follow up in 10 days
[2018-05-13] MEDS: HYDROXYCHLOROQUINE SULFATE 200 MG TAB PO SCH ×2 (14:54→21:13)
--- NOTE | 2018-05-13 17:34 | HOSPPROG ---
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 Aguilar today, it is felt that the Plaquenil would be safe to resume at this time * severe pulmonary hypertension * coronary artery disease, no stents in place, stable PLANS: * Continue current antibiotics, PICC catheter now placed * Resume his Plaquenil at this time, continue to hold mycophenolate * Review with ID in Cardiology whether another echocardiogram indicated before leaving SUBJECTIVE: continued improvement in pain today, getting up with assistance and ambulating across room with his walker No chills or sweats No new areas of pain OBJECTIVE Vitals reviewed: Stable without fever so far today Exam: alert oriented No focal neurologic changes, no confusion Moving more easily but still needing assistance to get from supine to the side of bed skin warm dry color ok resps not labored lungs clear BSs heart regular abd soft nondistended nontender, bowel sounds present limbs warm, no edema iv site ok MRI pelvis and lumbar spine shows evidence of myositis at the iliopsoas on left , some small bilateral hip joint effusions and some bursitis at trochanteric location but no osteo or abscesses Objective: Vital Signs Temp Pulse Resp BP Pulse Ox 36.4 C 74 16 124/67 H 90 L 05/13/18 15:36 05/13/18 15:36 05/13/18 15:36 05/13/18 15:36 05/13/18 15:36 Laboratory Results 05/11/18 10:00 05/12/18 09:52 05/12/18 05/13/18 05/14/18 06:59 06:59 06:59 Intake Total 400 Balance 400 ICD10 Worksheet Patient Problems: Problems Problem Status Onset Meningitis Acute
[2018-05-13] MEDS: ATORVASTATIN CALCIUM 40 MG TAB PO SCH (21:13)
[2018-05-14 04:44] LABS: PLATELET COUNT 139 10^3/uL (150-400)
[2018-05-14] MEDS: RAMIPRIL 5 MG CAP PO SCH (09:48)
[2018-05-14] MEDS: amLODIPine BESYLATE 5 MG TAB PO SCH (09:48)
[2018-05-14] MEDS: HYDROXYCHLOROQUINE SULFATE 200 MG TAB PO SCH ×2 (09:48→20:25)
[2018-05-14] MEDS: ASPIRIN EC 81 MG TAB PO SCH (09:49)
[2018-05-14] MEDS: DOXYCYCLINE HYCLATE 100 MG CAP/TAB PO SCH ×2 (09:49→20:25)
[2018-05-14] MEDS: ACETAMINOPHEN 325 MG TAB PO PRN ×2 (10:01→20:25)
--- NOTE | 2018-05-14 12:16 | PCMIDPN ---
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 Yesterday, emboli to spleen also ID'd. L iliacus changes on CT yesterday were stable --planning 8 weeks of IV antibiotics in light of spine involvement, Stop Date: 07/06/18 --requested formal CT surgery consult due to multiple emboli. Communicated to Dr. Garcia on 05/14/18 who will pass on to CT surg # increasing LFT: cholelithiasis on CT but no cholecystitis, no abdominal pain. 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 Herman Subjective: patient only c/o is L lateral hip pain neck pain has resolved no CP, no SOB Objective: Vital Signs Temp Pulse Resp BP Pulse Ox 36.6 C 104 H 18 114/75 98 05/14/18 08:00 05/14/18 08:00 05/14/18 08:00 05/14/18 08:00 05/14/18 08:00 Laboratory Results 05/14/18 04:20 05/14/18 04:20 05/13/18 05/14/18 05/15/18 05:59 05:59 05:59 Intake Total 400 Output Total 1 Balance 400 -1 ESR 37 MM/HR (0-20) H 05/11/18 10:00 C-Reactive Protein 147.4 mg/L (<10.0) H 05/14/18 04:20 - Physical Exam General Appearance: alert, no apparent distress EENT: No scleral icterus, No conjunctival petechiae Respiratory: lungs clear, No accessory muscle use Cardiac/Chest: regular rate, rhythm, diastolic murmur, systolic murmur Abdomen: non-tender, soft, other (L lateral hip pain to palpation) Skin: pallor, No jaundice, No rash Neuro/Psych: alert, normal mood/affect, oriented x 3 - Line/s LUE PICC Lines: No drainage, No erythema - Time Spent With Patient Time Spent with Patient: greater than 35 minutes Time Spent with Patient: Greater than 35 minutes spent on this patients care, greater than 50% of time spent counseling, educating, and coordinating care regarding the above mentioned plan. ICD10 Worksheet Patient Problems: Problems Problem Status Onset Meningitis Acute
--- NOTE | 2018-05-14 14:43 | HOSPPROG ---
Hospitalist Progress Note Assessment/Plan: 72 yo M w lupus on chronic immunosuppression here w Strep anginosus endocarditis w emboli bacteremia: cleared endocarditis: confirmed by SHELTON CT surgery to see 05/15 lupus: restart plaquenil MMF on hold ?csf infection: more likely irritation splenic infarct: embolic phenomen proph: lmwh dispo: inpt Subjective: case d/w dr trinidad Objective: Vital Signs Temp Pulse Resp BP Pulse Ox 36.3 C 78 20 121/69 H 93 05/14/18 12:00 05/14/18 12:00 05/14/18 12:00 05/14/18 12:00 05/14/18 12:00 Laboratory Results 05/14/18 04:20 05/14/18 04:20 05/13/18 05/14/18 05/15/18 05:59 05:59 05:59 Intake Total 400 Output Total 1 Balance 400 -1 - Physical Exam Constitutional: no apparent distress, appears nourished Eyes: PERRL, anicteric sclera Ears, Nose, Mouth, Throat: moist mucous membranes, hearing normal Cardiovascular: regular rate and rhythym, no murmur, rub, or gallop Respiratory: no respiratory distress, no rales or rhonchi Gastrointestinal: normoactive bowel sounds, soft, non-tender abdomen Genitourinary: no bladder fullness, No smith in urethra Skin: warm, normal color Musculoskeletal: No no muscle tenderness Neurologic: AAOx3 Psychiatric: interacting appropriately Lymph, Heme, Immunologic: no cervical LAD ICD10 Worksheet Patient Problems: Problems Problem Status Onset Meningitis Acute
[2018-05-14] MEDS: ATORVASTATIN CALCIUM 40 MG TAB PO SCH (20:25)
[2018-05-15] MEDS: amLODIPine BESYLATE 5 MG TAB PO SCH (09:05)
[2018-05-15] MEDS: HYDROXYCHLOROQUINE SULFATE 200 MG TAB PO SCH ×2 (09:05→21:46)
[2018-05-15] MEDS: RAMIPRIL 5 MG CAP PO SCH (09:06)
[2018-05-15] MEDS: DOXYCYCLINE HYCLATE 100 MG CAP/TAB PO SCH ×2 (09:06→21:46)
[2018-05-15] MEDS: ASPIRIN EC 81 MG TAB PO SCH (09:06)
--- NOTE | 2018-05-15 11:23 | ASMTCMCOM ---
CM Note CM Note Notes: CM spoke to Dr. Herman regarding d/c POC. Pt will require ivabx at time of d/c. Referral made to [facility] and [facility]. Both are able to accept. Nataly from [facility] met w/ pt today. CM to follow. Plan: [facility] w/ [facility]MMET[facility]; RN Date Signed: 05/15/2018 11:22 AM Electronically Signed By:HECTOR Charles
--- NOTE | 2018-05-15 12:14 | PDSURGCRDT ---
CardioThoracic Surgery Note - Objective Objective: Asked to this this active, working 72 year old gentlemen admitted with strep endocarditis. He has been treated in the past with Cellcept for lupus Generally he feels better since admission. Echo shows mitral valve vegetations with mild to moderate mitral regurg. LV nl. Recent evidence of embolization to spleen. I recommend mitral valve replacement. I had a long discussion with the patient and his . Risks benefits and alternatives reviewed and he agrees to proceed. He will need cath prior to surgery. Plan is for surgery on Tuesday. Vital Signs Temp Pulse Resp BP Pulse Ox 36.4 C 80 16 117/63 92 05/15/18 11:13 05/15/18 11:13 05/15/18 07:50 05/15/18 11:13 05/15/18 11:13 Laboratory Results 05/14/18 04:20 05/14/18 04:20 05/14/18 05/15/18 05/16/18 05:59 05:59 05:59 Output Total 1 Balance -1 ESR 37 MM/HR (0-20) H 05/11/18 10:00 C-Reactive Protein 147.4 mg/L (<10.0) H 05/14/18 04:20 Exam Temp Pulse Resp BP Pulse Ox 36.4 C 80 16 117/63 92 05/15/18 11:13 05/15/18 11:13 05/15/18 07:50 05/15/18 11:13 05/15/18 11:13 O2 (L/minute) 2
--- NOTE | 2018-05-15 12:56 | HOSPPROG ---
Hospitalist Progress Note Assessment/Plan: 72 yo M w lupus on chronic immunosuppression here w Strep anginosus endocarditis w emboli bacteremia: cleared endocarditis: confirmed by SHELTON CT surgery to see 05/15 lupus: restart plaquenil MMF on hold ?csf infection: more likely irritation from adjacent infection given neg csf micro elevated lft's: rising slowly but steadily may be due to ceftiaxone will d/w ID pre valve replacement: needs cath prior i spoke w Dr. Chen splenic infarct: embolic phenomen proph: lmwh dispo: inpt Subjective: case d/w dr chen. CT surgery rec MVR. afebrile Objective: Vital Signs Temp Pulse Resp BP Pulse Ox 36.4 C 80 16 117/63 92 05/15/18 11:13 05/15/18 11:13 05/15/18 07:50 05/15/18 11:13 05/15/18 11:13 Laboratory Results 05/14/18 04:20 05/14/18 04:20 05/14/18 05/15/18 05/16/18 05:59 05:59 05:59 Output Total 1 Balance -1 - Physical Exam Constitutional: no apparent distress, appears nourished Eyes: PERRL, anicteric sclera Ears, Nose, Mouth, Throat: moist mucous membranes, hearing normal Cardiovascular: regular rate and rhythym, systolic murmur, No edema Respiratory: no respiratory distress, no rales or rhonchi Gastrointestinal: normoactive bowel sounds, soft, non-tender abdomen Genitourinary: no bladder fullness, No smith in urethra Skin: warm Musculoskeletal: full muscle strength Neurologic: AAOx3 ICD10 Worksheet Patient Problems: Problems Problem Status Onset Endocarditis Acute Meningitis Acute
--- NOTE | 2018-05-15 16:09 | PCMIDPN ---
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 Repeat blood cultures show clearing of bacteremia. Appreciate CT surgery consultation with plans for mitral valve replacement given multiple embolic sites later this week. Continue ceftriaxone 2 g IV q.12 hours (given epidural inflammatory change using Q 12). 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 * Elevated LFTs: Mild increase in AST and ALT today versus yesterday without clinical signs of hepatitis. Will continue to follow carefully and if show continued increased will consider change to penicillin as Streptococcus anginosus isolate is susceptible. * Immunosuppression due to use of CellCept. Time spent, greater than 35 min, which greater than half was spent in education/ counseling/coordination of care related to mitral valve endocarditis and plan of care. 05/15/18 16:05 Subjective: Overall patient feels better with significant decrease in neck pain. Still complains of left hip pain and thigh pain. Seen by cardiothoracic surgery earlier today with plans for mitral valve replacement later this week. Objective: Vital Signs Temp Pulse Resp BP Pulse Ox 36.6 C 80 16 123/72 H 90 L 05/15/18 15:16 05/15/18 15:16 05/15/18 15:16 05/15/18 15:16 05/15/18 15:16 Laboratory Results 05/14/18 04:20 05/14/18 04:20 05/14/18 05/15/18 05/16/18 05:59 05:59 05:59 Output Total 1 Balance -1 ESR 37 MM/HR (0-20) H 05/11/18 10:00 C-Reactive Protein 147.4 mg/L (<10.0) H 05/14/18 04:20 Ceftriaxone 2 g IV q.12 hours # 6 Blood cultures 05/11/2018 no growth Blood cultures 05/09/2018/2 Streptococcus anginosus - Physical Exam General Appearance: alert, no apparent distress EENT: No scleral icterus, No conjunctival petechiae Respiratory: lungs clear, No respiratory distress Neck: non-tender, No meningismus Cardiac/Chest: regular rate, rhythm, systolic murmur (2/6 throughout) Abdomen: non-tender, No distended Skin: No embolic lesions ICD10 Worksheet Patient Problems: Problems Problem Status Onset Endocarditis Acute Meningitis Acute
[2018-05-15] MEDS: ATORVASTATIN CALCIUM 40 MG TAB PO SCH (21:46)
[2018-05-16] MEDS: amLODIPine BESYLATE 5 MG TAB PO SCH (09:11)
[2018-05-16] MEDS: DOXYCYCLINE HYCLATE 100 MG CAP/TAB PO SCH ×2 (09:11→23:08)
[2018-05-16] MEDS: RAMIPRIL 5 MG CAP PO SCH (09:11)
[2018-05-16] MEDS: HYDROXYCHLOROQUINE SULFATE 200 MG TAB PO SCH ×2 (09:12→23:08)
[2018-05-16] MEDS: ACETAMINOPHEN 325 MG TAB PO PRN (09:26)
[2018-05-16] MEDS ORDERED: DIAZEPAM 5 MG TAB PO ONE (10:16)
[2018-05-16] MEDS ORDERED: FAMOTIDINE 20 MG/NACL 50 ML IV ONE (10:17)
[2018-05-16] MEDS ORDERED: methylPREDNISolone SOD SUCC 125 MG/2 ML VIAL IVP ONE (10:17)
[2018-05-16] MEDS ORDERED: ASPIRIN EC 325 MG TAB PO ONE (10:17)
[2018-05-16] MEDS ORDERED: NS 1,000 ML IV ONE (10:17)
--- NOTE | 2018-05-16 10:18 | PDPROPOC ---
Sedation Plan of Care Sedation Plan of Care: vital signs stable, mental status noted, patient educated of risks, benefits, alternatives, patient can tolerate sedation ASA Classification: ASA 3 Planned drugs: fentanyl, midazolam Mallampati Score: Class 1 Mallampati Reference Image: Patient passed 3-3-2 rule?: Yes
[2018-05-16] MEDS ORDERED: fentaNYL 100 MCG/2 ML INJ ONE (10:21)
[2018-05-16] MEDS ORDERED: LIDOCAINE 1% 300 MG/30 ML SDV ONE (10:21)
[2018-05-16] MEDS: ASPIRIN EC 81 MG TAB PO SCH (10:21)
[2018-05-16] MEDS ORDERED: methylPREDNISolone SOD SUCC 125 MG/2 ML VIAL ONE (10:22)
[2018-05-16] MEDS ORDERED: HEPARIN 10,000 UNIT/10 ML MDV (1,000 UNIT/ML) ONE (10:22)
[2018-05-16] MEDS ORDERED: IOPAMIDOL (ISOVUE-370) 150 ML BTL IV ONE (10:22)
[2018-05-16] MEDS ORDERED: VERAPAMIL 5 MG/2 ML VIAL ONE (10:22)
[2018-05-16] MEDS ORDERED: MIDAZOLAM 2 MG/2 ML VIAL ONE (10:22)
[2018-05-16] MEDS ORDERED: FAMOTIDINE 20 MG/NACL/50 ML BAG IV ONE (10:23)
--- NOTE | 2018-05-16 10:41 | HOSPPROG ---
Hospitalist Progress Note Assessment/Plan: 72 yo M w lupus on chronic immunosuppression here w Strep anginosus endocarditis w emboli bacteremia: cleared endocarditis: confirmed by [facility] CT surgery to see 05/15 lupus: restart plaquenil MMF on hold ?csf infection: more likely irritation from adjacent infection given neg csf micro elevated lft's: rising slowly but steadily may be due to ceftiaxone will d/w ID 05/16: lower today continue ceftriaxone follow pre valve replacement: cath today splenic infarct: embolic phenomen proph: lmwh dispo: inpt Subjective: case d/w dr barth. lft's slightly better Objective: Vital Signs Temp Pulse Resp BP Pulse Ox 36.5 C 78 16 129/78 H 92 05/16/18 07:24 05/16/18 07:24 05/16/18 07:24 05/16/18 07:24 05/16/18 07:24 Laboratory Results 05/14/18 04:20 05/14/18 04:20 05/15/18 05/16/18 05/17/18 05:59 05:59 05:59 Intake Total 0 Balance 0 - Physical Exam Constitutional: no apparent distress, appears nourished Eyes: PERRL Ears, Nose, Mouth, Throat: moist mucous membranes, hearing normal Cardiovascular: regular rate and rhythym, no murmur, rub, or gallop Respiratory: no respiratory distress, no rales or rhonchi Gastrointestinal: normoactive bowel sounds, soft, non-tender abdomen Genitourinary: no bladder fullness, No smith in urethra Skin: warm, other (black, non balnching rash in LE) Musculoskeletal: full muscle strength Neurologic: AAOx3 ICD10 Worksheet Patient Problems: Problems Problem Status Onset Endocarditis Acute Meningitis Acute
--- NOTE | 2018-05-16 11:26 | PDDXCAT ---
Diagnostic Cath Note - . Date: 05/16/18 Industrial Renderer: Micheal Indication: other (Preop mitral valve replacement) - Procedure Access: right wrist Procedure: left heart catheterization, coronary angiography - Materials Left Heart Cath size: 5F Left Heart Cath materials: other (TIGER) - Findings-Left Heart Catheterization LM: Unobstructed LAD: Minimal luminal irregularities LCX: Minimal luminal irregularities RCA: Dominant: 70% distal stenosis eccentric. Complications: None Estimated blood loss: <50ml Closure method: TR Band Assessment: Moderate atherosclerotic cardiovascular disease with most critical stenosis in the distal RCA. Plan: Mitral valve replacement with consideration for coronary artery bypass graft to the distal RCA versus hybrid stent. Patient Problems: Problems Problem Status Onset Meningitis Acute Endocarditis Acute
--- NOTE | 2018-05-16 17:00 | PCMIDPN ---
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 Repeat blood cultures are no growth. Plans for mitral valve replacement given multiple embolic sites. * Elevated LFTs: Decreased today with likely some element of drug effect. Continue to monitor over time. * Immunosuppression due to use of CellCept. * Rash: New petechial rash over thighs, flank and back. Most likely drug related with considerations being IV contrast versus possibility of ceftriaxone. Currently does not have limiting appearance if related to ceftriaxone and can be monitored further over time. 05/16/18 16:42 Subjective: Patient status post cardiac catheterization. Catheterization findings noted including RCA disease. No further neck pain and left hip pain is less prominent. Objective: Vital Signs Temp Pulse Resp BP Pulse Ox 36.5 C 65 14 119/52 L 94 05/16/18 07:24 05/16/18 15:57 05/16/18 15:57 05/16/18 15:57 05/16/18 15:57 Laboratory Results 05/14/18 04:20 05/14/18 04:20 05/15/18 05/16/18 05/17/18 05:59 05:59 05:59 Intake Total 0 Balance 0 ESR 37 MM/HR (0-20) H 05/11/18 10:00 C-Reactive Protein 147.4 mg/L (<10.0) H 05/14/18 04:20 Ceftriaxone # 7 Blood cultures 05/11/18 no growth Blood cultures 05/09/18 2/2 S. anginosus - Physical Exam General Appearance: alert, no apparent distress EENT: No scleral icterus, No conjunctival petechiae Respiratory: lungs clear, No respiratory distress Cardiac/Chest: regular rate, rhythm, systolic murmur Abdomen: non-tender, No distended Skin: rash (Petechial rash over bilateral anterior thighs, left gluteal region, and confluent erythema over entirety of back without blisters) Neuro/Psych: alert ICD10 Worksheet Patient Problems: Problems Problem Status Onset Endocarditis Acute Meningitis Acute
[2018-05-16 17:25] LABS: INR 1.11 (0.83-1.16); PROTIME(PATIENT) 14.5 SEC (12.0-15.0)
[2018-05-16] MEDS ORDERED: CHLORHEXIDINE GLUC HIBICLENS 118 ML BTL TP SCH (21:00)
[2018-05-16] MEDS ORDERED: DIPHENHYDRAMINE CREAM TP PRN (21:39)
[2018-05-16] MEDS: ATORVASTATIN CALCIUM 40 MG TAB PO SCH (23:09)
[2018-05-16] MEDS: diphenhydrAMINE 25 MG CAP PO PRN (23:29)
[2018-05-17 06:31] LABS: PLATELET COUNT 177 10^3/uL (150-400)
--- NOTE | 2018-05-17 08:34 | HOSPPROG ---
Hospitalist Progress Note Assessment/Plan: 72 yo M w lupus on chronic immunosuppression here w Strep anginosus endocarditis w emboli bacteremia: cleared endocarditis: confirmed by [facility] MVR 05/17 CHF: cxr read as chf, looks like it, yet lying flat w no 02 requirement and clear exam single vessel cad: 1 vessel cabg vs stent lupus: restart plaquenil MMF on hold ?csf infection: more likely irritation from adjacent infection given neg csf micro elevated lft's: rising slowly but steadily may be due to ceftiaxone will d/w ID 05/16: lower today continue ceftriaxone follow pre valve replacement: cath today splenic infarct: embolic phenomen proph: lmwh dispo: suspect will be transferred to CT surgery service w ID consult please let me know if CT surgery wishes for hospitalist to continue to follow Subjective: cxr- pulm edema (interp by me). cath w distal 70% RCA stenosis. carotids OK Objective: Vital Signs Temp Pulse Resp BP Pulse Ox 36.3 C 71 12 165/73 H 91 L 05/17/18 07:19 05/17/18 07:19 05/17/18 07:19 05/17/18 07:19 05/17/18 07:19 Microbiology 05/11/18 10:00 Blood Culture - Final Blood 05/11/18 10:00 Blood Culture - Final Blood Laboratory Results 05/17/18 06:00 05/17/18 06:00 05/16/18 05/17/18 05/18/18 05:59 05:59 05:59 Intake Total 0 200 Output Total 350 Balance 0 -150 PT 14.5 SEC (12.0-15.0) 05/16/18 16:35 INR 1.11 (0.83-1.16) 05/16/18 16:35 - Physical Exam Constitutional: no apparent distress, appears nourished Eyes: PERRL, anicteric sclera Ears, Nose, Mouth, Throat: moist mucous membranes, hearing normal Cardiovascular: regular rate and rhythym, no murmur, rub, or gallop Respiratory: no respiratory distress, no rales or rhonchi Gastrointestinal: normoactive bowel sounds, soft, non-tender abdomen Genitourinary: no bladder fullness, No smith in urethra Skin: warm, other (dark LE rash unchanged this is longstanding and permanent) Musculoskeletal: full muscle strength Neurologic: AAOx3 ICD10 Worksheet Patient Problems: Problems Problem Status Onset Endocarditis Acute Meningitis Acute
[2018-05-17] MEDS ORDERED: AMINOCAPROIC ACID 5 GM/20 ML VIAL IV ONE (09:00)
[2018-05-17] MEDS ORDERED: NOREPINEPHRINE BITARTRATE 16 MG in NS 250 ML IV ONE (09:00)
[2018-05-17] MEDS ORDERED: CARDIOPLEGIC SOLUTION 1,052.8 ML PF ONE (09:00)
[2018-05-17] MEDS ORDERED: MANNITOL 25% 12.5 GM/50 ML VIAL IVP ONE (09:00)
[2018-05-17] MEDS ORDERED: VERAPAMIL 5 MG, NITROGLYCERIN 2.5 MG, HEPARIN 500 UNIT, SODIUM BICARBONATE 0.2 MEQ in L... MISC ONE (09:00)
[2018-05-17] MEDS ORDERED: CITRATE DEXTROSE SOLN 500 ML BAG MISC ONE (09:00)
[2018-05-17] MEDS ORDERED: niCARdipine/NACL 200 ML IV ONE (09:00)
[2018-05-17] MEDS ORDERED: MUPIROCIN 2% 22 GM OINT NS ONE (09:00)
[2018-05-17] MEDS ORDERED: INSULIN REGULAR HUMAN 100 UNIT in NS 100 ML IV ONE (09:00)
[2018-05-17] MEDS ORDERED: PHENYLEPHRINE HCL 50 MG in NS 250 ML IV ONE (09:00)
[2018-05-17] MEDS ORDERED: DOBUTamine/DEXTROSE 250 ML IV SCH (09:00)
[2018-05-17] MEDS ORDERED: hydrALAZINE 20 MG/ML VIAL IVP PRN (09:06)
[2018-05-17] MEDS: HYDROXYCHLOROQUINE SULFATE 200 MG TAB PO SCH (09:24)
[2018-05-17] MEDS: amLODIPine BESYLATE 5 MG TAB PO SCH (09:48)
[2018-05-17] MEDS: ASPIRIN EC 81 MG TAB PO SCH (09:48)
[2018-05-17] MEDS: DOXYCYCLINE HYCLATE 100 MG CAP/TAB PO SCH ×2 (09:48→21:51)
[2018-05-17] MEDS: RAMIPRIL 5 MG CAP PO SCH (09:49)
--- NOTE | 2018-05-17 11:02 | PCMIDPN ---
Assessment/Plan: #Streptococcus anginosis MV endocarditis w mod to severe MR associated with C1- 2 prevertebral abscess 3x 0.5cm, also some associated epidural inflammatory change, left iliacus/psoas myositis, emboli to spleen . 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: Mycophenolate on hold at the moment meds ceftriaxone 2gm IV q12h #8 micro 05/09 Blood cx (2) streptococcus anginosus NUPUR ceftriaxone <=0.125, PCN 0.0625 05/11 blood x (2) Neg 05/09 CSF culture: Negative Subjective: patient w/o specific c/o surgery today at bedside Objective: Vital Signs Temp Pulse Resp BP Pulse Ox 36.3 C 71 12 159/70 H 91 L 05/17/18 07:19 05/17/18 07:19 05/17/18 07:19 05/17/18 09:50 05/17/18 07:19 Microbiology 05/11/18 10:00 Blood Culture - Final Blood 05/11/18 10:00 Blood Culture - Final Blood Laboratory Results 05/17/18 06:00 05/17/18 06:00 05/16/18 05/17/18 05/18/18 05:59 05:59 05:59 Intake Total 0 200 Output Total 350 Balance 0 -150 ESR 37 MM/HR (0-20) H 05/11/18 10:00 C-Reactive Protein 147.4 mg/L (<10.0) H 05/14/18 04:20 - Physical Exam General Appearance: alert EENT: pale conjunctiva, other (scab over upper lip), No scleral icterus Respiratory: No accessory muscle use, No crackles Neck: supple Cardiac/Chest: regular rate, rhythm, diastolic murmur, systolic murmur Neuro/Psych: alert, normal mood/affect, oriented x 3 - Line/s LUE PICC Lines: No drainage, No erythema - Time Spent With Patient Time Spent with Patient: greater than 35 minutes (reviewed plan of care w patient and ) Time Spent with Patient: Greater than 35 minutes spent on this patients care, greater than 50% of time spent counseling, educating, and coordinating care regarding the above mentioned plan. ICD10 Worksheet Patient Problems: Problems Problem Status Onset Endocarditis Acute Meningitis Acute
[2018-05-17] MEDS ORDERED: HEPARIN 10,000 UNIT/10 ML MDV (1,000 UNIT/ML) ONE ×3 (11:23→11:24)
[2018-05-17] MEDS ORDERED: DOPamine/DEXTROSE 400 MG/250 ML BAG IV ONE (11:23)
[2018-05-17] MEDS ORDERED: niCARdipine/NACL/200 ML BAG IV ONE (11:23)
[2018-05-17] MEDS ORDERED: NA BICARBONATE 50 MEQ/50 ML VIAL ONE (11:23)
[2018-05-17] MEDS ORDERED: CALCIUM CHLORIDE 1 GM/10 ML INJ ONE ×3 (11:23→11:24)
[2018-05-17] MEDS ORDERED: MILRINONE/DEXTROSE/100 ML BAG IV ONE (11:23)
[2018-05-17] MEDS ORDERED: PROTAMINE SULFATE 50 MG/5 ML VIAL IVP ONE ×2 (11:23→16:18)
[2018-05-17] MEDS ORDERED: NITROGLYCERIN/D5W 50 MG/250 ML BOTTLE IV ONE (11:24)
[2018-05-17] MEDS ORDERED: LIDOCAINE 2% 100 MG/5 ML SYR ONE (11:24)
[2018-05-17] MEDS ORDERED: AMIODARONE HCL 150 MG/3 ML VIAL ONE ×2 (11:24→11:25)
[2018-05-17] MEDS ORDERED: ADENOSINE 6 MG/2 ML VIAL ONE (11:24)
[2018-05-17] MEDS ORDERED: MIDAZOLAM 2 MG/2 ML VIAL IVP ONE (11:24)
[2018-05-17] MEDS ORDERED: ceFAZolin 1 GM VIAL ONE (11:24)
[2018-05-17] MEDS ORDERED: ALBUMIN 5% 250 ML BOTTLE IV ONE (11:24)
--- NOTE | 2018-05-17 11:24 | PDANEPAE ---
ANE History of Present Illness 72 yo for mvr ANE Past Medical History - Cardiovascular History Hx Hypertension: Yes Hx Arrhythmias: No Hx Chest Pain: No Hx Coronary Artery / Peripheral Vascular Disease: Yes Hx CHF / Valvular Disease: Yes Hx Palpitations: No Cardiovascular History Comment: HIGH CHOL. MITRAL REGURG - Pulmonary History Hx COPD: No Hx Asthma/Reactive Airway Disease: No Hx Recent Upper Respiratory Infection: No Hx Oxygen in Use at Home: Yes O2 in Use at Home (L/minute): 2 Hx Sleep Apnea: Yes Sleep Apnea Screening Result - Last Documented: Positive Pulmonary History Comment: PULM HTN. SYL MILD- O2 AT NIGHT 2 L/M. COULDNT MARISA CPAP. DENIES SOB W STAIRS. LUNG DAMAGE, NOT PROCESSING O2 CORRECTLY- DEMINISHED VOL CAPACITY BETWEEN 25-33 PERCENT. 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 ? LYME DISEASE. RETINAL VASCULITIS. ANTI-CARDIO LIPIN ANTIBODY CLOTS X 2 IN 1993 RECENTLY RETESTED RESULTS NEG. EYES POOR FOCUSING. HAIRS HYPERPIGMENTED - Chronic Pain History Chronic Pain: Yes (RT SHLDR) - Surgical History Prior Surgeries: LT HAMSTRING REPAIR 12/2013. SAURAV ING HERNIA REP. TONSILS AGE 15. CUT CHILD, CLAMP TO STOP VBLEEDING ANE Review of Systems Review of Systems: - Exercise capacity METS (RN): 3 METS ANE Patient History - Allergies Allergies/Adverse Reactions: CONTRAST DYE Allergy (Intermediate, Uncoded 05/09/18 16:40) Rash - Home Medications Home Medications: Aspirin EC [Aspirin EC 81 mg (*)] 81 mg PO DAILY 05/09/18 [Last Taken 05/09/18] Atorvastatin Calcium [Lipitor 40 mg (*)] 40 mg PO HS 05/09/18 [Last Taken ] Doxycycline Hyclate 50 mg PO BID 05/09/18 [Last Taken 05/09/18 09:00] Hydroxychloroquine Sulfate [Plaquenil 200 mg (*)] 200 mg PO BID 05/09/18 [Last Taken 05/09/18 09:00] Mycophenolate Mofetil 1,000 mg PO BID 05/09/18 [Last Taken 05/09/18 09:00] Ramipril [Altace 5mg (*)] 5 mg PO DAILY 05/09/18 [Last Taken 05/08/18] amLODIPine BESYLATE [Norvasc 5 mg (*)] 5 mg PO DAILY 05/09/18 [Last Taken ] - NPO status NPO Since - Liquids (Date): 05/17/18 NPO Since - Liquids (Time): 00:00 NPO Since - Solids (Date): 05/17/18 NPO Since - Solids (Time): 00:00 - Anes Hx Anes Hx: no prior problems - Smoking Hx Smoking Status: Never smoked - Family Anes Hx Family Hx Anesthesia Complications: NONE ANE Labs/Vital Signs - Labs Result Diagrams: 05/17/18 06:00 05/17/18 06:00 - Vital Signs Blood Pressure: 159/70 Heart Rate: 71 Respiratory Rate: 12 O2 Sat (%): 91 Height: 5 ft 9 in Weight: 75.387 kg ANE Physical Exam - Airway Neck exam: FROM Mallampati Score: Class 2 Mouth exam: normal dental/mouth exam - Pulmonary Pulmonary: no respiratory distress - Cardiovascular Cardiovascular: regular rate and rhythym - ASA Status ASA Status: IV ANE Anesthesia Plan Anesthesia Plan: general endotracheal anesthesia Lines/Monitors: arterial line, central line, [facility]
[2018-05-17] MEDS ORDERED: methylPREDNISolone SOD SUCC 1 GM/8 ML VIAL ONE (11:25)
[2018-05-17] MEDS ORDERED: MAGNESIUM SULFATE 1 GM/2 ML VIAL ONE (11:25)
[2018-05-17] MEDS ORDERED: LR 1,000 ML IV ONE (11:25)
[2018-05-17] MEDS ORDERED: CITRATE DEXTROSE SOLN 500 ML BAG ONE (11:25)
[2018-05-17] MEDS ORDERED: REMIFENTANIL HCL 1 MG VIAL ONE (11:28)
[2018-05-17] MEDS ORDERED: fentaNYL 100 MCG/2 ML INJ ONE (11:28)
[2018-05-17] MEDS ORDERED: ROCURONIUM 100 MG/10 ML VIAL ONE (11:29)
[2018-05-17] MEDS ORDERED: DEXAMETHASONE 4 MG/ML VIAL ONE (11:29)
[2018-05-17] MEDS ORDERED: PROPOFOL/EMULSION 500 MG/50 ML BOTTLE IV ONE (11:29)
[2018-05-17] MEDS ORDERED: MUPIROCIN 2% 22 GM OINT ONE (11:32)
[2018-05-17 16:57] LABS: INR 1.63 (0.83-1.16); PROTIME(PATIENT) 19.5 SEC (12.0-15.0)
[2018-05-17] MEDS ORDERED: D50W 25 GM/50 ML SYR IVP PRN (17:13)
[2018-05-17] MEDS ORDERED: POLYETHYLENE GLYCOL 3350 17 GM PKT PO PRN (17:13)
[2018-05-17] MEDS ORDERED: ACETAMINOPHEN 650 MG SUPP PR PRN (17:13)
[2018-05-17] MEDS ORDERED: MEPERIDINE 25 MG/0.5 ML AMP IVP PRN (17:13)
[2018-05-17] MEDS ORDERED: LACTULOSE 20 GM/30 ML UDCUP PO PRN (17:13)
[2018-05-17] MEDS ORDERED: CEPACOL LOZENGE PO PRN (17:13)
[2018-05-17] MEDS ORDERED: niCARdipine/NACL 200 ML IV PRN (17:13)
[2018-05-17] MEDS ORDERED: SODIUM CL NASAL 45 ML BTL EACHNARE PRN (17:13)
[2018-05-17] MEDS ORDERED: ONDANSETRON DISINTEGRATING 4 MG TAB PO PRN (17:13)
[2018-05-17] MEDS ORDERED: PANTOPRAZOLE SODIUM 40 MG VIAL IVP ONE (17:13)
[2018-05-17] MEDS ORDERED: METOCLOPRAMIDE 10 MG/2 ML VIAL IVP PRN (17:13)
[2018-05-17] MEDS ORDERED: ALBUMIN 5% 250 ML IV PRN (17:13)
[2018-05-17] MEDS ORDERED: BISACODYL 10 MG SUPP PR PRN (17:13)
[2018-05-17] MEDS ORDERED: fentaNYL 100 MCG/2 ML INJ IVP PRN (17:13)
[2018-05-17] MEDS ORDERED: NS 1,000 ML IV SCH (17:15)
[2018-05-17] MEDS ORDERED: HYDROCODONE/APAP 5/325 TAB PO PRN (17:25)
[2018-05-17] MEDS ORDERED: INSULIN REGULAR HUMAN 100 UNIT in NS 100 ML IV SCH (17:30)
[2018-05-17] MEDS: POTASSIUM Cl (KCl) 50 ML IV PRN ×2 (18:12→18:46)
[2018-05-17] MEDS: ONDANSETRON 4 MG/2 ML VIAL IVP PRN (20:26)
[2018-05-17] MEDS: MUPIROCIN 2% 22 GM OINT NS SCH (21:51)
--- NOTE | 2018-05-17 22:19 | GOP ---
DATE OF OPERATION: 05/17/2018 SURGEON: Nba Grimes MD VOICE INTERCEPT TECHNICIAN: Lauren Amador, MARGARET. PREOPERATIVE DIAGNOSIS: 1. Mitral valve endocarditis with embolization. 2. Single-vessel coronary artery disease. POSTOPERATIVE DIAGNOSIS: 1. Mitral valve endocarditis with embolization. 2. Single-vessel coronary artery disease. PROCEDURE PERFORMED: 1. Mitral valve replacement using a 27 mm Magna Ease bovine pericardial valve. 2. Single-vessel coronary artery bypass grafting with saphenous vein graft from aorta to right coron loraine artery. 3. Endoscopic vein harvest from the left thigh. FINDINGS: The pericardial space was actually fairly densely adherent. There was evidence of previou s intrapericardial inflammation. The mitral valve itself had severe calcification of the mitral anul us. The posterior leaflet was essentially fixed, and a large calcium burden in the posterior anulus was identified as well as some circumferential calcium throughout the remainder of the anulus. The a nterior leaflet and posterior leaflet both had vegetations. INDICATIONS: The patient is a 72-year-old gentleman who is active and working who developed mitral v alve endocarditis. He has a history of immunosuppression. The organism was strep, and he was initia lly doing well in medical therapy, but there was evidence of embolization to the spleen, a nd the patient was recommended to undergo surgical valve replacement. DESCRIPTION OF PROCEDURE: Patient was taken to operating room and placed on the operating table in s upine position. After induction of general anesthesia and single-lumen tracheal tube intubation, pat ient was prepped and draped sterilely. Standard median sternotomy was performed, and saphenous vein was harvested from the left leg using a minimally invasive endoscopic technique. Once the chest was opened via median sternotomy, we dissected out the aorta and superior vena cava, heparinized the joon ent and then cannulated again the aorta and superior vena cava. Cardiopulmonary bypass was institute d as we dissected out the remainder of the heart. This took quite a while just due to the extensive intrapericardial adhesions. The inferior vena cava was dissected. It was cannulated then with a 28- [place] cannula. Next, the cross-clamp was applied, and the heart was arrested with 1 L of [place] s olution. The distal right coronary was dissected open, probed with a 2 mm vessel and anastomosed end -to-side to a vein graft using running 7-0 Prolene. Next, the left atrium was opened. The valve was as described above. The anterior and posterior leaflets were resected. There was tremendous calcif ication of the posterior leaflet. It was fairly treacherous as this extended down into the left vent ricle and was somewhat friable. Sutures were placed around the anulus with great care in order to pr event dislodgement of any of the calcium in an effort to minimize the risk of AV disruption. There w as some difficulty getting needles through some of this calcium, but ultimately the sutures were plac ed circumferentially around the anulus and the valve was seated without difficulty. It was secured i n place with COR-KNOT device, and the left atrium was then closed. The cross-clamp was then removed, and a partial occlusion clamp was placed. The vein graft was anastomosed end-to-side to the ascendi ng aorta using running 6-0 Prolene. This was de-aired and allowed to flow freely. The patient was t hen from cardiopulmonary bypass with 3 mcg of dobutamine. This was done without difficulty . The post pump transesophageal echo shows a trace of a perivalvular leak in an area of extensive ca lcification. This was deemed to be clinically acceptable and then the protamine was administered. T he patient was decannulated. The patient was clearly coagulopathic. Two doses of platelets were giv en in the operating room. We then checked the INR. It was elevated and so more fresh frozen plasma was also administered immediately following surgery. Once the wounds were closed in layers and dress ing was applied, the patient was transferred to the ICU in stable condition. /[id number]/MODL
[2018-05-17] MEDS: traMADol 50 MG TAB PO PRN (22:57)
[2018-05-18] MEDS: traMADol 50 MG TAB PO PRN (05:09)
[2018-05-18 05:23] LABS: INR 1.21 (0.83-1.16); PROTIME(PATIENT) 15.5 SEC (12.0-15.0)
[2018-05-18 05:45] LABS: PLATELET COUNT 171 10^3/uL (150-400)
--- NOTE | 2018-05-18 06:30 | SOAPPROG ---
SOAP Progress Note Assessment/Plan: Assessment: POD#1 MVR #27 Magna bioprosthesis, CABG x 1 (SV-dRCA) Strep anginosus mitral valve endocarditis with septic emboli - MVR undertaken after blood cxs cleared. Await intraop cxs. Abx per ID. Stable early postop course. Optimized hemodynamics on low dose dobutamine. No dysrhythmias. No sig volume overload. Lupus on chronic immunosuppression - MMF on hold. Plaquenil to be restarted. Single vessel CAD - Incidental finding by preop LHC. Bypassed with venous conduit. Secondary prevention w baby ASA, BB as tolerated and statin when appropriate (LFTs normalized). Acute expected blood loss anemia with thrombocytopenia and coagulopathy - Corrected with 1u Plt and 4u FFP. No evidence active bleeding. Use of PRBC prn. Plan: Routine POD#1 orders re lines, wires, orals and mobility. Stop dobutamine. Transfuse 2u PRBC. IV lasix prn CVP > 12. Start metoprolol with conservative hold parameters. Consider tx to PCU later today. 05/18/18 06:29 Subjective: Comfortable seated. A little dizzy and nauseous when upright. Objective: Vital Signs Temp Pulse Resp BP Pulse Ox 36.9 C 93 20 133/66 H 96 05/18/18 00:00 05/18/18 06:00 05/18/18 06:00 05/18/18 06:00 05/18/18 06:00 Microbiology 05/17/18 14:25 Gram Stain - Final Heart - Tissue 05/11/18 10:00 Blood Culture - Final Blood 05/11/18 10:00 Blood Culture - Final Blood Laboratory Results 05/18/18 05:00 05/18/18 05:00 05/17/18 05/18/18 05/19/18 05:59 05:59 05:59 Intake Total 200 2143 Output Total 350 1460 Balance -150 683 PT 15.5 SEC (12.0-15.0) H 05/18/18 05:00 INR 1.21 (0.83-1.16) H 05/18/18 05:00 Extubated last pm without incident. Min suppl O2 req. Dobutamine weaned from 5 to 1 mcg overnoc. Holding MAPs > 80, CI > 2.5, adequate UOP. CXR-> no PTX, min pulm vasc congestion, bibasilar atelectasis. Moderate CTOP but quality thin. H/H appears to have plateaued. ICD10 Worksheet Patient Problems: Problems Problem Status Onset Endocarditis Acute Meningitis Acute
[2018-05-18] MEDS ORDERED: FUROSEMIDE 20 MG/2 ML VIAL IVP ONE (07:14)
[2018-05-18] MEDS ORDERED: POTASSIUM CL 10 MEQ TAB PO ONE (07:14)
[2018-05-18] MEDS: PANTOPRAZOLE SODIUM 40 MG TAB PO SCH (08:13)
[2018-05-18] MEDS: DOXYCYCLINE HYCLATE 100 MG CAP/TAB PO SCH ×2 (08:13→22:02)
[2018-05-18] MEDS: ASPIRIN EC 81 MG TAB PO SCH (08:15)
[2018-05-18] MEDS ORDERED: METOPROLOL TARTRATE 25 MG TAB PO SCH (09:00)
--- NOTE | 2018-05-18 09:38 | PCMIDPN ---
Assessment/Plan: 1. Strep anginosus mitral valve endocarditis complicated by splenic emboli and C1/C2 epidural abscess postop day 1 status post bioprosthetic valve replacement and single-vessel CABG: In excellent spirits today! Doing very well. Continue high-dose ceftriaxone 2 g IV q.12 hours. No new recommendations at this point in time. Continue to follow safety labs as outlined below on high-dose ceftriaxone. 2.History of transaminitis: Resolving. No evidence clinically or lab prince for pseudocholelithiasis, which can be caused by ceftriaxone. 3.Petechial rash upper inner thighs: Agree that this is likely secondary to recent contrast dye. No evidence of rash elsewhere. No eosinophilia and liver function tests coming down. Doubt drug-induced. Subjective: Status post MVR with bioprosthetic valve and single-vessel CABG (SVG to RCA). Patient in excellent spirits today. No complaints. Objective: Ceftriaxone 2 g IV q.12 hours day 9 No fevers. Some hypothermia documented which has resolved. Vital Signs Temp Pulse Resp BP Pulse Ox 36.5 C 73 17 139/64 H 97 05/18/18 08:00 05/18/18 09:00 05/18/18 09:00 05/18/18 09:00 05/18/18 09:00 Microbiology 05/17/18 14:25 Gram Stain - Final Heart - Tissue 05/11/18 10:00 Blood Culture - Final Blood 05/11/18 10:00 Blood Culture - Final Blood Laboratory Results 05/18/18 05:00 05/18/18 05:00 05/17/18 05/18/18 05/19/18 05:59 05:59 05:59 Intake Total 200 2143 Output Total 350 1460 Balance -150 683 ESR 37 MM/HR (0-20) H 05/11/18 10:00 C-Reactive Protein 147.4 mg/L (<10.0) H 05/14/18 04:20 Blood cultures May 11 negative - Physical Exam General Appearance: alert, no apparent distress EENT: pharynx normal, No thrush Respiratory: lungs clear Neck: other (Right IJ in place) Cardiac/Chest: other (Median sternotomy incision is clean, dry, and intact without click or tenderness.), No systolic murmur Extremities: other (PICC line left upper extremity looks fine) Abdomen: non-tender, soft Skin: other (Very faint, blanching petechial rash on his upper inner thighs and groin area. This is fading, per the patient. No rash elsewhere with the exception of his hyperpigmentation on his lower extremities from Plaquenil), No embolic lesions Neuro/Psych: oriented x 3 ICD10 Worksheet Patient Problems: Problems Problem Status Onset Endocarditis Acute Meningitis Acute
[2018-05-18] MEDS: MUPIROCIN 2% 22 GM OINT NS SCH ×2 (09:58→22:03)
--- NOTE | 2018-05-18 11:26 | ASMTCMCOM ---
CM Note CM Note Notes: Pt admitted for suspected meningitis, bacteremia and cervical abscess in the setting of lupus on immunosupressive drugs. Pt then had open heart surgery on 05/17 for mitral valve repair and CABG. Pt to transfer to PCU likely today. ID following; pt on IV ABX which will likely continue after discharge. Referrals have been sent to [facility] and [facility] and have been accepted. PT and OT evals pending. Pt lives in [place] with his [place]. CM to follow. D/C Plan: Home infusion with [facility] and [facility] v SNF pending PT/OT evals Date Signed: 05/18/2018 11:25 AM Electronically Signed By:Lucy Fields
[2018-05-18] MEDS: ONDANSETRON 4 MG/2 ML VIAL IVP PRN (11:34)
--- NOTE | 2018-05-18 17:05 | CPEKG ---
Test Reason : OPEN Blood Pressure : / mmHG Vent. Rate : 100 BPM Atrial Rate : 100 BPM P-R Int : 177 ms QRS Dur : 090 ms QT Int : 336 ms P-R-T Axes : 019 -09 085 degrees QTc Int : 434 ms Sinus tachycardia Multiple ventricular premature complexes Anteroseptal infarct, age indeterminate Left atrial enlargement Confirmed by Migel Nguyễn ([id number]) on 05/18/2018 5:04:42 PM Referred By: Confirmed By:Migel Nguyễn
[2018-05-18] MEDS ORDERED: ASPIRIN 81 MG CHEWABLE TAB TUBE PRN (17:13)
--- NOTE | 2018-05-18 20:20 | POSTANESTH ---
Post Anesthetic Evaluation Cardiovascular Status: Normal, Stable Respiratory Status: Tx Decrease in SpO2 Level of Consciousness/Mental Status: Can Participate in Eval Pain Control: Adequate, Prn Tx Ordered Nausea/Vomiting Control: Adequate, Prn Tx Ordered Complications Possibly Related to Anesthesia: None Noted
[2018-05-18] MEDS: METOPROLOL TARTRATE 25 MG TAB PO SCH (21:59)
[2018-05-18] MEDS: HYDROXYCHLOROQUINE SULFATE 200 MG TAB PO SCH (22:02)
[2018-05-18] MEDS: ACETAMINOPHEN 325 MG TAB PO PRN (22:02)
[2018-05-19 05:54] LABS: INR 1.21 (0.83-1.16); PROTIME(PATIENT) 15.5 SEC (12.0-15.0)
[2018-05-19 06:03] LABS: PLATELET COUNT 123 10^3/uL (150-400)
--- NOTE | 2018-05-19 08:49 | SOAPPROG ---
SOAP Progress Note Assessment/Plan: Assessment: POD#2 MVR #27 Magna bioprosthesis, CABG x 1 (SV-dRCA) Strep anginosus mitral valve endocarditis with septic emboli - MVR undertaken after blood cxs cleared. Veg no org. Await valve cx result. Abx via PICC under ID direction. Stable early postop course. Optimized hemodynamics on low dose dobutamine night of surgery. No dysrhythmias. No sig volume overload. Antithrombotic prophylaxis with coumadin x 2 mo, target INR 2-3. AF prophylaxis with BB, uptitrated as tolerated. Lupus on chronic immunosuppression - MMF on hold. Plaquenil restarted. Single vessel CAD - Incidental finding by preop LHC. Bypassed with venous conduit. Secondary prevention w baby ASA, BB as tolerated, and statin when appropriate (LFTs normalized). Acute expected blood loss anemia with thrombocytopenia and coagulopathy - Corrected with 1u Plt, 4u FFP, and 2u PRBC. VTE prophylaxis with SCDs and coumadin until INR > 1.7. Plan: Cont metoprolol 25 mg BID. Cont gentle diuresis. Consider chest tube removal later today. Start coumadin. D/C QLC. Consider Vwire removal tomorrow. Baseline postop echo. Dispo - Anticipate home +/- C in 2days 05/19/18 08:48 Subjective: Doing well. Improving stamina and appetite. Hopeful for chest tube removal today. Objective: Vital Signs Temp Pulse Resp BP Pulse Ox 36.8 C 69 14 142/89 H 98 05/19/18 07:12 05/19/18 07:12 05/19/18 07:12 05/19/18 07:12 05/19/18 07:12 Microbiology 05/17/18 14:25 Gram Stain - Final Heart - Tissue 05/17/18 14:25 Mycobacterial Smear (NUPUR) - Final Heart - Tissue Laboratory Results 05/19/18 05:25 05/19/18 05:25 05/18/18 05/19/18 05/20/18 05:59 05:59 05:59 Intake Total 2143 2775 Output Total 1460 1740 300 Balance 683 1035 -300 PT 15.5 SEC (12.0-15.0) H 05/19/18 05:25 INR 1.21 (0.83-1.16) H 05/19/18 05:25 Improved HR control on low dose BB. Uptrending SBPs. Min suppl O2 req. Positive fluid balance. +3kg overall. CTOP approaching removal criteria. Labs ok. Physical Exam - Physical Exam General Appearance: alert, no apparent distress Respiratory: lungs clear (grossly), other (CTs x 2 yd to pleurovac, serosang drainage, no air leak) Cardiac/Chest: other (Sternotomy CDI. Vwires intact.) Abdomen: normal bowel sounds, non-tender, soft Skin: warm/dry Extremities: swelling (trace), other (LLE venotomy CDI) ICD10 Worksheet Patient Problems: Problems Problem Status Onset Endocarditis Acute Meningitis Acute
[2018-05-19] MEDS ORDERED: FUROSEMIDE 20 MG/2 ML VIAL IVP ONE (09:27)
[2018-05-19] MEDS: ASPIRIN EC 81 MG TAB PO SCH (09:43)
[2018-05-19] MEDS: DOXYCYCLINE HYCLATE 100 MG CAP/TAB PO SCH ×2 (09:43→20:36)
[2018-05-19] MEDS: MUPIROCIN 2% 22 GM OINT NS SCH ×2 (09:44→20:37)
[2018-05-19] MEDS: METOPROLOL TARTRATE 25 MG TAB PO SCH ×2 (09:46→20:36)
[2018-05-19] MEDS: SENNOSIDES/DOCUSATE SODIUM TAB PO SCH ×2 (09:47→20:36)
[2018-05-19] MEDS: HYDROXYCHLOROQUINE SULFATE 200 MG TAB PO SCH ×2 (09:47→20:36)
[2018-05-19] MEDS: PANTOPRAZOLE SODIUM 40 MG TAB PO SCH (09:47)
--- NOTE | 2018-05-19 11:26 | PCMIDPN ---
Assessment/Plan: 1. 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 Continue high-dose ceftriaxone 2 g IV q.12 hours. No new recommendations at this point in time. Continue to follow safety labs as outlined below on high-dose ceftriaxone. Suspect right IJ can be discontinued. 2.History of transaminitis: Resolving. No evidence clinically or lab prince for pseudocholelithiasis, which can be caused by ceftriaxone. 3.Petechial rash upper inner thighs: Practically gone. Subjective: In good spirits. Watching TV. Wants the chest tube out. Objective: Ceftriaxone 2 g IV q.12 hours day 10 T-max 37.1 degrees Vital Signs Temp Pulse Resp BP Pulse Ox 36.6 C 65 20 139/79 H 98 05/19/18 11:08 05/19/18 11:08 05/19/18 11:08 05/19/18 11:08 05/19/18 11:08 Microbiology 05/17/18 14:25 Gram Stain - Final Heart - Tissue 05/17/18 14:25 Mycobacterial Smear (NUPUR) - Final Heart - Tissue Laboratory Results 05/19/18 05:25 05/19/18 05:25 05/18/18 05/19/18 05/20/18 05:59 05:59 05:59 Intake Total 2143 2775 220 Output Total 1460 1740 700 Balance 683 1035 -480 ESR 37 MM/HR (0-20) H 05/11/18 10:00 C-Reactive Protein 147.4 mg/L (<10.0) H 05/14/18 04:20 Heart tissue culture negative Mitral valve pathology pending - Physical Exam General Appearance: alert, no apparent distress EENT: pharynx normal, No thrush Respiratory: other (Decreased breath sounds bilaterally) Cardiac/Chest: regular rate, rhythm, other (Median sternotomy incision clean, dry, intact with no click or erythema), No systolic murmur Extremities: other (PICC line left arm, right IJ) Abdomen: non-tender, soft Skin: No embolic lesions Neuro/Psych: oriented x 3 ICD10 Worksheet Patient Problems: Problems Problem Status Onset Endocarditis Acute Meningitis Acute
[2018-05-19] MEDS ORDERED: WARFARIN SODIUM 2.5 MG TAB PO ONE (16:00)
[2018-05-20 06:29] LABS: INR 1.19 (0.83-1.16); PROTIME(PATIENT) 15.3 SEC (12.0-15.0)
--- NOTE | 2018-05-20 07:42 | SOAPPROG ---
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 Veg no org. Await valve cx result. Abx via PICC under ID direction. Stable early postop course. Antithrombotic prophylaxis with coumadin x 2 mo, target INR 2-3 (today 1.19). Repeat coumadin today at 2.5 mg. AF prophylaxis with BB, uptitrated as tolerated. Lupus on chronic immunosuppression - MMF on hold. Plaquenil restarted. Single vessel CAD - Incidental finding by preop LHC. Bypassed with venous conduit. Secondary prevention w baby ASA, BB as tolerated, and statin when appropriate (LFTs normalized). Acute expected blood loss anemia with thrombocytopenia and coagulopathy - Corrected with 1u Plt, 4u FFP, and 2u PRBC. VTE prophylaxis with SCDs and coumadin until INR > 1.7. Hct dropped from 25-22 today -> d/w Dr. Grimes - Plan to give 1u pRBC. Plan: Cont gentle diuresis Coumadin 2.5 mg PO today, repeat INR tomorrow V wire out today. Baseline postop echo. 1 prbc for anemia hct 22 Repeat CBC tomorrow AM. Dispo - Anticipate home +/- HHC tomorrow or Tuesday Subjective: Doing well. Minimal complaints. Objective: Vital Signs Temp Pulse Resp BP Pulse Ox 36.5 C 64 14 127/68 H 99 05/20/18 04:00 05/20/18 04:00 05/20/18 04:00 05/20/18 04:00 05/20/18 04:00 Microbiology 05/17/18 14:25 Gram Stain - Final Heart - Tissue Laboratory Results 05/20/18 05:45 05/20/18 05:45 05/19/18 05/20/18 05/21/18 05:59 05:59 05:59 Intake Total 2775 1070 Output Total 1740 1700 Balance 1035 -630 PT 15.3 SEC (12.0-15.0) H 05/20/18 05:45 INR 1.19 (0.83-1.16) H 05/20/18 05:45 General: NAD, sitting upright HEENT: PICC, MMM Resp: no wheezes, crackles Cardiac: NSR, no m/r/g, no edema GI: soft, nt, nd Extremities: hyperpigmented secondary to rheumatological disease Incisions: sternum - clean, dry, intact; right thigh - clean, dry, intact DVT prophylaxis: SCDs, Coumadin Arterial Line: removed at transfer Stevenson: out Antibiotics within 48 hours: yes CVL: yes, need for ongoing management, labs Chest tubes: removed Wires: out today ICD10 Worksheet Patient Problems: Problems Problem Status Onset Endocarditis Acute Meningitis Acute
[2018-05-20] MEDS: SENNOSIDES/DOCUSATE SODIUM TAB PO SCH ×2 (10:30→20:10)
[2018-05-20] MEDS: HYDROXYCHLOROQUINE SULFATE 200 MG TAB PO SCH ×2 (10:30→20:07)
[2018-05-20] MEDS: ASPIRIN EC 81 MG TAB PO SCH (10:31)
[2018-05-20] MEDS: METOPROLOL TARTRATE 25 MG TAB PO SCH ×2 (10:31→20:08)
[2018-05-20] MEDS: DOXYCYCLINE HYCLATE 100 MG CAP/TAB PO SCH ×2 (10:32→20:07)
[2018-05-20] MEDS: PANTOPRAZOLE SODIUM 40 MG TAB PO SCH (10:32)
[2018-05-20] MEDS: MUPIROCIN 2% 22 GM OINT NS SCH (10:33)
--- NOTE | 2018-05-20 13:50 | PCMIDPN ---
Assessment/Plan: 1. 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 Continue high-dose ceftriaxone 2 g IV q.12 hours. Continue to follow safety labs as outlined below on high-dose ceftriaxone. Will need repeat imaging of his neck moving forward to evaluate for resolution of the epidural abscess. If continues to have extreme discomfort with weight-bearing, will likely need to have his psoas area reimaged as well. As outlined previously by Dr. Aguilar, tentative stop date of antibiotics 07/06/2018. 2.History of transaminitis: Improved. No evidence clinically or lab prince for pseudocholelithiasis, which can be caused by ceftriaxone. 3.Petechial rash upper inner thighs: Gone. 4. Oral candidiasis: No esophageal symptoms. Start clotrimazole troches 5 times per day. 5. Disposition: The patient's expressed to me that she is quite concerned she cannot care for him at home, given the amount of attention he needs. Will convey this to social work. Over 25 min spent with this patient today 05/20/18 13:52 Subjective: Watching TV with his and son. No complaints. Chest tube removed. Right IJ removed. (Thank you CT surgery!) Patient's is very concerned about her ability to care for him at home. Continues to have pain in his left hip area when he bears weight. No diarrhea. Objective: Ceftriaxone 2 g IV q.12 hours day 11 T-max 37.2 degrees Vital Signs Temp Pulse Resp BP Pulse Ox 36.5 C 58 L 19 123/69 H 100 05/20/18 04:00 05/20/18 11:47 05/20/18 11:47 05/20/18 11:47 05/20/18 11:47 Microbiology 05/17/18 14:25 Gram Stain - Final Heart - Tissue Laboratory Results 05/20/18 05:45 05/20/18 05:45 05/19/18 05/20/18 05/21/18 05:59 05:59 05:59 Intake Total 2775 1070 Output Total 1740 1700 Balance 1035 -630 ESR 37 MM/HR (0-20) H 05/11/18 10:00 C-Reactive Protein 147.4 mg/L (<10.0) H 05/14/18 04:20 Card tissue remains no growth - Physical Exam General Appearance: alert, no apparent distress EENT: thrush Respiratory: lungs clear Cardiac/Chest: regular rate, rhythm, No systolic murmur Extremities: other (PICC line left upper extremity looks fine) Abdomen: non-tender, soft Skin: No rash ICD10 Worksheet Patient Problems: Problems Problem Status Onset Endocarditis Acute Meningitis Acute
[2018-05-20] MEDS ORDERED: WARFARIN SODIUM 2.5 MG TAB PO ONE (16:00)
[2018-05-20] MEDS ORDERED: LIDOCAINE 4%/MENTHOL 1% PATCH TD ONE ×2 (16:30→19:15)
[2018-05-20] MEDS: CLOTRIMAZOLE 10 MG TROCHE PO SCH ×3 (18:54→20:55)
[2018-05-20] MEDS: ATORVASTATIN CALCIUM 40 MG TAB PO SCH (20:58)
[2018-05-21] MEDS: CLOTRIMAZOLE 10 MG TROCHE PO SCH ×5 (05:44→20:05)
[2018-05-21] MEDS: PATCH REMOVAL 1 EA PATCH TD SCH ×2 (05:45→20:05)
[2018-05-21 06:14] LABS: INR 1.15 (0.83-1.16); PROTIME(PATIENT) 14.9 SEC (12.0-15.0)
--- NOTE | 2018-05-21 08:59 | SOAPPROG ---
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 Veg no org. Await valve cx result. Abx via PICC under ID direction. Stable early postop course. Antithrombotic prophylaxis with coumadin x 2 mo, target INR 2-3 (today 1.15, down from 1.19). Repeat coumadin today at 5 mg. AF prophylaxis with BB, uptitrated as tolerated. Lupus on chronic immunosuppression - MMF on hold. Plaquenil restarted. Single vessel CAD - Incidental finding by preop LHC. Bypassed with venous conduit. Secondary prevention w baby ASA, BB. Restart statin when LFTs normalize. Acute expected blood loss anemia with thrombocytopenia and coagulopathy - Corrected with 1u Plt, 4u FFP, and 2u PRBC. VTE prophylaxis with SCDs and coumadin until INR > 1.7. 1U pRBC for Hct 22 yesterday. 27.5 today. Plan: Coumadin 5 mg PO today, repeat INR tomorrow Baseline postop echo either today or tomorrow Anticipate home with [facility] vs. SNF given patient's safety concerns Subjective: No complaints. Dr. Lock's note stated has significant concerns about discharge. PT note rec home with o/p [facility]. not in room during rounds. Objective: Vital Signs Temp Pulse Resp BP Pulse Ox 37.1 C 60 19 128/67 H 99 05/21/18 08:00 05/21/18 08:00 05/21/18 08:00 05/21/18 08:00 05/21/18 08:00 Microbiology 05/17/18 14:25 Gram Stain - Final Heart - Tissue Laboratory Results 05/21/18 05:55 05/20/18 05:45 05/20/18 05/21/18 05/22/18 05:59 05:59 05:59 Intake Total 1070 400 Output Total 1700 300 Balance -630 100 PT 14.9 SEC (12.0-15.0) 05/21/18 05:55 INR 1.15 (0.83-1.16) 05/21/18 05:55 General: NAD, sitting upright HEENT: PICC, MMM Resp: no wheezes, crackles Cardiac: NSR, no m/r/g, no edema GI: soft, nt, nde Incisions: sternum - clean, dry, intact; right thigh - clean, dry, intact DVT prophylaxis: SCDs, Coumadin Arterial Line: removed at transfer Stevenson: out Antibiotics within 48 hours: yes CVL: yes, need for ongoing management, labs Chest tubes: removed Wires: removed ICD10 Worksheet Patient Problems: Problems Problem Status Onset Endocarditis Acute Meningitis Acute
[2018-05-21] MEDS: HYDROXYCHLOROQUINE SULFATE 200 MG TAB PO SCH ×2 (10:28→20:05)
[2018-05-21] MEDS: PANTOPRAZOLE SODIUM 40 MG TAB PO SCH (10:28)
[2018-05-21] MEDS: LIDOCAINE 4%/MENTHOL 1% PATCH TD SCH (10:28)
[2018-05-21] MEDS: METOPROLOL TARTRATE 25 MG TAB PO SCH ×2 (10:28→20:04)
[2018-05-21] MEDS: SENNOSIDES/DOCUSATE SODIUM TAB PO SCH ×2 (10:29→20:04)
[2018-05-21] MEDS: DOXYCYCLINE HYCLATE 100 MG CAP/TAB PO SCH ×2 (10:29→20:04)
[2018-05-21] MEDS: ASPIRIN EC 81 MG TAB PO SCH (10:29)
--- NOTE | 2018-05-21 13:45 | ASMTCMCOM ---
DEAN Note CM Note Notes: I met with patient and . is concerned about her ability to care for patient when he is discharged. We talked about SNF rehab v hiring private duty care at home. She will visit [facility] and [facility] today and let us know if that is what she wants. I sent referrals to both facilities; they will have to request insurance authorization from [facility] if patient chooses to admit. We will follow up with patient and first thing tomorrow since CT surgery is eager to discharge. Date Signed: 05/21/2018 01:45 PM Electronically Signed By:Erin Ross RN
--- NOTE | 2018-05-21 13:52 | PCMIDPN ---
Assessment/Plan: 1. 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 Will repeat MRI of the pelvis tomorrow to further evaluate the left psoas area. Will also repeat C-spine MRI while he is down there to look at the prevertebral abscess at C1-C2. Continue high-dose ceftriaxone. Tolerating this well with stable liver function tests and no evidence of pseudocholelithiasis. As outlined previously by Dr. Aguilar, tentative stop date of antibiotics 07/06/2018. 2.History of transaminitis: Improved. Follow liver function tests as per the above on ceftriaxone. 3. Oral candidiasis: No esophageal symptoms. Continue clotrimazole troches 5 times per day. 5. Disposition: Spoke with the patient's today as well as the patient. He is agreeable to a snf facility and this is in the works. Subjective: Continues to have some discomfort in his left hemipelvis/hip when he stands. No fevers, otherwise feeling well. present in the room, who corroborates the fact that she would like him in a snf facility. Patient is agreeable. No diarrhea. Objective: Ceftriaxone 2 g IV q.12 hours day 12 T-max 37.1 degrees Vital Signs Temp Pulse Resp BP Pulse Ox 37.1 C 63 19 114/57 L 94 05/21/18 11:40 05/21/18 11:40 05/21/18 11:40 05/21/18 11:40 05/21/18 11:40 Microbiology 05/17/18 14:25 Gram Stain - Final Heart - Tissue Laboratory Results 05/21/18 05:55 05/20/18 05:45 05/20/18 05/21/18 05/22/18 05:59 05:59 05:59 Intake Total 1070 400 Output Total 1700 300 300 Balance -630 100 -300 ESR 37 MM/HR (0-20) H 05/11/18 10:00 C-Reactive Protein 147.4 mg/L (<10.0) H 05/14/18 04:20 No new microbiology, heart tissue remains sterile - Physical Exam General Appearance: alert, no apparent distress EENT: other (Crusting in his philthrum, does not look herpetic), No thrush Respiratory: lungs clear Cardiac/Chest: regular rate, rhythm, No systolic murmur Extremities: other (PICC line left upper extremity looks fine) Abdomen: non-tender, soft Skin: No rash, No embolic lesions ICD10 Worksheet Patient Problems: Problems Problem Status Onset Endocarditis Acute Meningitis Acute
[2018-05-21] MEDS ORDERED: WARFARIN SODIUM 5 MG TAB PO ONE (16:00)
[2018-05-21] MEDS ORDERED: WARFARIN SODIUM 2.5 MG TAB PO ONE (16:00)
[2018-05-21] MEDS: ATORVASTATIN CALCIUM 40 MG TAB PO SCH (20:05)
[2018-05-22 06:18] LABS: INR 1.37 (0.83-1.16)
[2018-05-22] MEDS: CLOTRIMAZOLE 10 MG TROCHE PO SCH ×5 (07:36→21:23)
[2018-05-22] MEDS: DOXYCYCLINE HYCLATE 100 MG CAP/TAB PO SCH ×2 (08:26→20:20)
[2018-05-22] MEDS: METOPROLOL TARTRATE 25 MG TAB PO SCH ×2 (08:26→20:22)
[2018-05-22] MEDS: ASPIRIN EC 81 MG TAB PO SCH (08:26)
[2018-05-22] MEDS: PANTOPRAZOLE SODIUM 40 MG TAB PO SCH (08:27)
[2018-05-22] MEDS: SENNOSIDES/DOCUSATE SODIUM TAB PO SCH ×2 (08:27→20:21)
[2018-05-22] MEDS: HYDROXYCHLOROQUINE SULFATE 200 MG TAB PO SCH ×2 (08:27→20:21)
[2018-05-22] MEDS: LIDOCAINE 4%/MENTHOL 1% PATCH TD SCH (08:27)
[2018-05-22] MEDS: diphenhydrAMINE 25 MG CAP PO PRN (08:34)
--- NOTE | 2018-05-22 09:13 | SOAPPROG ---
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 Veg no org. Await valve cx result. Abx via PICC under ID direction. Stable early postop course. Antithrombotic prophylaxis with coumadin x 2 mo, target INR 2-3 (today 1.37). Repeat coumadin today at 5 mg. AF prophylaxis with BB - heart rate and rhythm stable. Lupus on chronic immunosuppression - MMF on hold. Plaquenil restarted. Single vessel CAD - Incidental finding by preop LHC. Bypassed with venous conduit. Secondary prevention w baby ASA, BB. Restart statin when LFTs normalize. Acute expected blood loss anemia with thrombocytopenia and coagulopathy - Corrected with 1u Plt, 4u FFP, and 2u PRBC. VTE prophylaxis with SCDs and coumadin until INR > 1.7. 1U pRBC for Hct 22 05/20. Left Hip/Neck Pain - similar to presenting symptoms; rechecking MRI C-Spine and pelvis per ID Plan: Coumadin 5 mg PO today, repeat INR tomorrow Baseline postop echo today MRI C-Spine & Left Hip WWO today per ID Anticipate home SNF given patient's safety concerns, awaiting approval Subjective: Doing well today. Some pain in neck and hip. Objective: Vital Signs Temp Pulse Resp BP Pulse Ox 36.3 C 63 20 129/70 H 100 05/22/18 07:24 05/22/18 07:24 05/22/18 07:24 05/22/18 07:24 05/22/18 07:24 Laboratory Results 05/21/18 05:55 05/20/18 05:45 05/21/18 05/22/18 05/23/18 05:59 05:59 05:59 Intake Total 400 810 Output Total 300 925 Balance 100 -115 PT 17.0 SEC (12.0-15.0) H 05/22/18 06:00 INR 1.37 (0.83-1.16) H 05/22/18 06:00 General: NAD, sitting upright HEENT: PICC, MMM Resp: no wheezes, crackles Cardiac: NSR, no m/r/g, no edema GI: soft, nt, nde Incisions: sternum - clean, dry, intact; EVH thigh - clean, dry, intact DVT prophylaxis: SCDs, Coumadin Arterial Line: removed Stevenson: removed Antibiotics within 48 hours: yes CVL: PICC - needed for terminologist abx Chest tubes: removed Wires: removed ICD10 Worksheet Patient Problems: Problems Problem Status Onset Acute blood loss anemia Acute Endocarditis Acute Meningitis Acute S/P CABG x 1 Acute S/P MVR (mitral valve replacement) Acute
[2018-05-22] MEDS ORDERED: GADOBUTROL 10 ML VIAL IVP ONE (10:30)
--- NOTE | 2018-05-22 12:14 | ASMTCMCOM ---
CM Note CM Note Notes: D/W PA, patient appropriate for SNF at this time. Met with patient and spoke with patient's via phone #[phone], they have chosen [facility], MARIO ALBERTO Garsia okay with this SNF plan. Updated therapy notes sent to kirsten Wheat for Ilene requesting they start insurance auth. CM will follow. Plan: [facility] when auth rec'd. Date Signed: 05/22/2018 12:12 PM Electronically Signed By:Mary Kate Johnson RN
--- NOTE | 2018-05-22 14:54 | ASMTCMCOM ---
CM Note CM Note Notes: DEAN spoke with Ilene at [facility]. Auth rec'd. Notified PA, will plan for D/C on Tuesday. Laure at [facility] updated on pt's discharge plan. CM will follow. Plan: [facility] on Tuesday. Date Signed: 05/22/2018 02:53 PM Electronically Signed By:Mary Kate Johnson RN
--- NOTE | 2018-05-22 15:02 | PCMIDPN ---
Assessment/Plan: Assessment/Plan: * Streptococcus anginosus mitral valve endocarditis with concomitant C1-C2 prevertebral abscess, left iliacus/psoas myositis, and splenic emboli status post mitral valve replacement: Repeat blood cultures and valve culture show no growth to date. Repeat MRI of C-spine shows improved prevertebral edema with resolution of abscess and minimal anterior epidural inflammatory change. Pelvic MRI shows improving left iliopsoas myositis with residual myositis in the iliacus muscle as well as some presacral edema which likely explain persistent left pelvic pain. Continue ceftriaxone 2 g IV q.12 hours given presence of epidural enhancement with anticipated 8 week course of therapy due to continue through 07/06/2018. * Elevated LFTs: Improved over time. Continue to monitor while on ceftriaxone on a weekly basis. * Immunosuppression due to use of CellCept. 05/22/18 14:58 Subjective: Patient complains of left flank pain along belt line which is worse with movement. Neck pain significantly decreased. Objective: Vital Signs Temp Pulse Resp BP Pulse Ox 36.6 C 64 17 116/51 L 95 05/22/18 14:53 05/22/18 14:53 05/22/18 14:53 05/22/18 14:53 05/22/18 14:53 Microbiology 05/17/18 14:25 Gram Stain - Final Heart - Tissue Laboratory Results 05/21/18 05:55 05/20/18 05:45 05/21/18 05/22/18 05/23/18 05:59 05:59 05:59 Intake Total 400 810 50 Output Total 300 925 200 Balance 100 -115 -150 ESR 37 MM/HR (0-20) H 05/11/18 10:00 C-Reactive Protein 147.4 mg/L (<10.0) H 05/14/18 04:20 Ceftriaxone # 13 Mitral valve culture no growth MRI of C-spine and pelvis overall improved with resolution of abscess at C1-2 with some residual myositis in pelvis present but no focal abscess Laboratory Tests 05/20/18 05:45 Total Bilirubin 0.5 AST 63 H ALT 78 H Alkaline Phosphatase 54 - Physical Exam General Appearance: alert, no apparent distress EENT: No scleral icterus, No conjunctival petechiae Respiratory: lungs clear, No respiratory distress Cardiac/Chest: regular rate, rhythm, other (Sternotomy without erythema or drainage) Extremities: other (Pain with flexion of left hip) Abdomen: non-tender, No distended Skin: No rash - Line/s LUE PICC Lines: No drainage, No erythema - Time Spent With Patient Time Spent with Patient: greater than 35 minutes Time Spent with Patient: Greater than 35 minutes spent on this patients care, greater than 50% of time spent counseling, educating, and coordinating care regarding the above mentioned plan. ICD10 Worksheet Patient Problems: Problems Problem Status Onset Acute blood loss anemia Acute Endocarditis Acute Meningitis Acute S/P CABG x 1 Acute S/P MVR (mitral valve replacement) Acute
[2018-05-22] MEDS ORDERED: WARFARIN SODIUM 5 MG TAB PO ONE (16:00)
--- NOTE | 2018-05-22 16:16 | PDIAF ---
- Diagnosis Diagnosis: Streptococcus anginosis MV endocarditis w C1-2 prevertebral abscess Code Status: Full Code - Medication Management Intermediate Antibiotics: ceftriaxone 2gm IV q12h Intermediate Antibiotic Stop Date: 07/06/18 Discharge Medications: electronically signed and located in the Home Medication List. PICC Care - Routine: Yes - Orders Services needed: Home Care, Registered Nurse Home Care Face to Face: I certify that this patient was under my care and that I had the required [id number] encounter meeting the encounter requirements on the discharge day. My findings support the fact that the patient is homebound as defined in Home Care Face to Face Continued: CMS Chapter 7 Medicare Benefits Manual 30.1.1 , The condition of the patient is such that there exists a normal inability to leave home and consequently, leaving home would require a considerable and taxing effort. Isolation Type: None Diet Recommendation: cardiac -low fat low salt Diet Texture: Regular Texture Diet, Thin Liquids, Meds Whole w/Liquids - Labs/Radiology CBC w/diff Date: 05/22/18 (Weekly Tuesday) CMP Date: 05/22/18 (Weekly Tuesday) CRP Date: 05/22/18 (Weekly Tuesday) Call or Fax Lab and Imaging Results to: Herbert Bryant MD [facility] at fax [phone] - Follow Up Care Current Providers and Referrals: MICHELE FREDERICK [Primary Care Provider] - As per Instructions Nba Grimes MD [Medical Doctor] - 05/30/18 10:00 am Herbert Bryant MD [Medical Doctor] - 05/30/18 11:00 am
[2018-05-22] MEDS: ATORVASTATIN CALCIUM 40 MG TAB PO SCH (20:21)
[2018-05-22] MEDS: PATCH REMOVAL 1 EA PATCH TD SCH (21:24)
[2018-05-23] MEDS: CLOTRIMAZOLE 10 MG TROCHE PO SCH ×2 (06:12→09:12)
[2018-05-23 06:15] LABS: INR 1.94 (0.83-1.16); PROTIME(PATIENT) 22.2 SEC (12.0-15.0)
[2018-05-23 07:21] VITALS: BP 131/73
--- NOTE | 2018-05-23 07:51 | SOAPPROG ---
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 Veg no org. Await valve cx result. Abx via PICC under ID direction. Stable early postop course. Antithrombotic prophylaxis with coumadin x 2 mo, target INR 2-3 (today 1.94). Hold today. AF prophylaxis with BB - heart rate and rhythm stable. Lupus on chronic immunosuppression - MMF on hold. Plaquenil restarted. Single vessel CAD - Incidental finding by preop LHC. Bypassed with venous conduit. Secondary prevention w baby ASA, BB. Restart statin when LFTs normalize. Acute expected blood loss anemia with thrombocytopenia and coagulopathy - Corrected with 1u Plt, 4u FFP, and 2u PRBC. VTE prophylaxis with SCDs and coumadin until INR > 1.7. 1U pRBC for Hct 22 05/20. C1-C2 prevertebral abscess/Left psoas myositis - improved from previous pre-OR scans. Abx per ID Plan: Hold coumadin today, repeat coumadin 2.5 mg PO tomorrow; daily INRs Awaiting TTE results SNF discharge today Subjective: No complaints. Ready for discharge to SNF. Objective: Vital Signs Temp Pulse Resp BP Pulse Ox 36.9 C 70 14 131/73 H 99 05/23/18 07:20 05/23/18 07:20 05/23/18 07:20 05/23/18 07:20 05/23/18 07:20 Microbiology 05/17/18 14:25 Gram Stain - Final Heart - Tissue Laboratory Results 05/21/18 05:55 05/20/18 05:45 05/22/18 05/23/18 05/24/18 05:59 05:59 05:59 Intake Total 810 800 Output Total 925 825 Balance -115 -25 PT 22.2 SEC (12.0-15.0) H 05/23/18 05:50 INR 1.94 (0.83-1.16) H 05/23/18 05:50 General: NAD, sitting upright HEENT: PICC, MMM Resp: no wheezes, crackles Cardiac: NSR, no m/r/g, no edema GI: soft, nt, nd Incisions: sternum - clean, dry, intact; EVH left thigh - clean, dry, intact DVT prophylaxis: SCDs, Coumadin Arterial Line: removed Stevenson: removed Antibiotics within 48 hours: yes CVL: PICC - needed for correction abx Chest tubes: removed Wires: removed ICD10 Worksheet Patient Problems: Problems Problem Status Onset Acute blood loss anemia Acute Endocarditis Acute Meningitis Acute S/P CABG x 1 Acute S/P MVR (mitral valve replacement) Acute
[2018-05-23] MEDS: DOXYCYCLINE HYCLATE 100 MG CAP/TAB PO SCH (08:35)
[2018-05-23] MEDS: METOPROLOL TARTRATE 25 MG TAB PO SCH (08:35)
[2018-05-23] MEDS: HYDROXYCHLOROQUINE SULFATE 200 MG TAB PO SCH (08:35)
[2018-05-23] MEDS: ASPIRIN EC 81 MG TAB PO SCH (08:35)
[2018-05-23] MEDS: LIDOCAINE 4%/MENTHOL 1% PATCH TD SCH (08:35)
[2018-05-23] MEDS: SENNOSIDES/DOCUSATE SODIUM TAB PO SCH (08:36)
[2018-05-23] MEDS: PANTOPRAZOLE SODIUM 40 MG TAB PO SCH (08:36)
--- NOTE | 2018-05-23 09:01 | PDHOMEO2F ---
Home Oxygen Face to Face Home Orders: I certify that a physician or a nurse practitioner or physician's guest services assistant has had a [id number] encounter with this patient on the date of this order due to the diagnosis listed, which relates to the primary reason the patient requires home oxygen. Alternative treatments have been tried, or considered, and deemed ineffective. It is anticipated that supplemental oxygen will result in improvement with treatment. Home oxygen qualifying diagnosis: mitral valve endocarditis s/p replacement, CAD s/p CABG Home oxygen secondary diagnosis: chronic respiratory insufficiency on home oxygen (baseline 2 LPM) SpO2 on room air (%): 86% Frequency of home oxygen needed: continuous Home oxygen delivery device: nasal cannula Concentrator: Yes E-tanks for mobility and back up: Yes If ordering portable O2, is the patient mobile in the home?: Yes I certify that, based on these findings, the home oxygen is medically necessary for this patient for the following length of time. Length of time home oxygen needed: 1 month
--- NOTE | 2018-05-23 09:52 | PDIAF ---
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 PICC Care - Routine: Yes - Orders Services needed: Home Care, Registered Nurse, Master Wind Operations Supervisor, Physical Therapy, Occupational Therapy Home Care Face to Face: I certify that this patient was under my care and that I had the required [id number]-[id number] encounter meeting the encounter requirements on the discharge day. My findings support the fact that the patient is homebound as defined in Home Care Face to Face Continued: CMS Chapter 7 Medicare Benefits Manual 30.1.1 , The condition of the patient is such that there exists a normal inability to leave home and consequently, leaving home would require a considerable and taxing effort. Isolation Type: None Oxygen: yes, patient on 2 L pre-op via NC Diet Recommendation: cardiac -low fat low salt Diet Texture: Regular Texture Diet, Thin Liquids, Meds Whole w/Liquids Weigh Patient: daily Stevenson: No Additional Instructions: Cardiac Surgery Instructions Call [facility] cardiac rehab to enroll in phase 2 classes once released from rehab. Sternal precautions x 4 weeks. Avoid lifting > 10lbs with an outstretched arm. Avoid push/pull activities. Cleanse wounds once daily with soap and water. Avoid underwater immersion (pool , hot tub, bath) until scabs off. Okay to leave all wounds open to air. Avoid creams or ointments until scabs off. Elevate low legs at rest. Avoid prolonged standing or dangling. Log daily vital signs: weight, resting heart rate, blood pressure, +/- pulse oximetry. Call [employer] for overnight weight gain > 2lbs, weekly gain > 5lbs or worsening leg swelling. Call [employer] for resting heart rate > 120 or < 60 OR for systolic blood pressure consistently < 90 or > 160. Target oxygen saturation > 89%. Adjustments per cardiac rehab. Please obtain a chest xray prior to surgical appointment. Use requisition form attached to appointment card. Chest x-rays don't require an appointment. Go to the Emergency Room entrance at the [facility] location. Sign in at the computer kiosk in the entryway. You will be given a number & may sit in the waiting area until called. You will be registered and directed to Imaging on the 1st floor. This process can take up to an hour. Please allow at least 30 min before your appt to get x-ray taken. Okay to use [id number] medications for iron supplementation, bowel function or pain. Consider Tylenol 500-650 mg with meals and before bed. Max daily dose of Tylenol 3000 mg. Avoid nonsteroidal anti-inflammatories (ie. Ibuprofen, advil, motrin, aleve) x 3 months for interference with beneficial effects of aspirin on graft flow. Lifelong antibiotic prophylaxis prior to dental, respiratory tract, or skin/ soft tissue procedures. - Labs/Radiology CBC w/diff Date: 05/22/18 (Weekly Tuesday) CMP Date: 05/22/18 (Weekly Tuesday) CRP Date: 05/22/18 (Weekly Tuesday) PT/INR Date: 05/24/18 (daily INR, dose coumadin for 2-3) Call or Fax Lab and Imaging Results to: Herbert Bryant MD [facility] at fax [phone] - Follow Up Care Current Providers and Referrals: Herbert Bryant MD [Medical Doctor] - 05/30/18 11:00 am MICHELE FREDERICK [Primary Care Provider] - As per Instructions Nba Grimes MD [Medical Doctor] - 05/30/18 10:00 am
--- NOTE | 2018-05-23 09:53 | PDDCSUM ---
Discharge Summary Discharge Summary: DATE OF ADMISSION: 05/09/18 via Emergency Department DATE OF DISCHARGE: 05/23/18 DISPOSITION: senior living [facility] ADMISSION DIAGNOSES: 1. Possible meningitis 2. Acute bacteremia with an unknown source 3. Chronic respiratory insufficiency on home oxygen (2L baseline) 4. Systemic Lupus Erythematosus 5. Chronic medication-induced immunosuppression 6. Hypertension 7. Hyperlipidemia 8. History of transaminitis 9. Lyme disease 10. Thrombocytopenia DISCHARGE DIAGNOSES: As above plus, 1. 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 Coronary artery disease s/p CABGx1 SVG-RCA 3. Left psoas myositis/left hip pain 4. Acute expected blood loss anemia 5. 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 Pulmonary hypertension PROCEDURE AND IMAGING PERFORMED IN CHRONOLOGICAL ORDER: 1. Lumbar puncture, 05/09/[address] Marin Greenberg 2. MRI Cervical Spine Without & With Contrast, 05/10/18 3. MRI Left Hip/Pelvis Without & With Contrast, 05/11/18 4. Transthoracic echocardiogram, 05/11/18 5. Transesophageal echocardiogram, 05/12/18, Dr. Mario Garcia 6. Left heart catheterization, coronary angiography, 05/16/18, Dr. Carl Burton 7. Mitral valve replacement with 27 mm Magna Ease bovine pericardial valve, single-vessel coronary artery bypass grafting with saphenous vein graft from aorta to right coronary artery, endoscopic harvest from left thigh, 05/17/18, Dr. Nba Sanchez 8. MRI Cervical Spine Without & With Contrast, 05/22/18 9. MRI Left Hip/Pelvis Without & With Contrast, 05/22/18 10. Transthoracic echocardiogram, 05/21/18, report pending at time of discharge HISTORY OF PRESENT ILLNESS: This is a 72-year-old male with a history of lupus, on Plaquenil and mycophenolate, who was referred to the ED by his orthopedic surgeon after being evaluated for neck pain earlier that day. Patients states that he had been having worsening neck pain over the past week. He went to the see his orthopedic surgeon, where he had x-rays done that did not reveal a cause for his pain. He then developed some pretty significant chills and was sent to the emergency department for further evaluation. He denied headache, fever, numbness , or weakness. In the emergency department, he underwent a lumbar puncture. He was admitted for possible meningitis and bacteremia. He was started on empiric antibiotics by infectious disease. HOSPITAL COURSE: He was admitted to the hospital and received a full infectious disease work-up as to the source of his possible meningitis and bacteremia. MRI of his cervical neck demonstrated C1-C2 abscess with mild epidural inflammatory changes causing a CSF pleocytosis effectively ruling out meningitis. Further, the CSF meningoencephalitis panel returned negative. ENT and neurosurgery were consulted who recommended medical therapy for his C1-2 abscess. He was transitioned to ceftriaxone. He complained of left hip and pelvic pain as well. MRI demonstrated left psoas myositis. TTE was performed but was unable to rule out endocarditis. SHELTON confirmed mitral valve endocarditis with moderate to severe mitral valve regurgitation, pulmonary hypertension, and a preserved LVEF. He was initially recommended medical management but then there was concern for splenic embolization. Surgery was then recommended with pre- operative LHC which demonstrated single vessel coronary artery disease. He went for surgery on 05/17/18 as listed above. He required low dose dobutamine the night surgery and otherwise had a stable post-operative course. He required blood transfusions (1 platelet, 4 FFP, 2 PRBC) for expected acute blood loss anemia and thrombocytopenia. He was transferred to the progressive care unit. Coumadin was started with a target INR or 2-3 for 8 weeks. He is to continue IV antibiotics until July under the care of infectious disease. Repeat MRI of the cervical neck and hip demonstrate improvement. He is to be discharged to a retirement facility for further cares. CONSULTANTS: 1. Infectious Diseases, Dr. Herbert Bryant & Dr. Hien Lock 2. Otorhinolaryngology, Dr. Placido Chavez 3. Neurosurgery, Dr. Negro Sanon 4. Cardiothoracic Surgery, Dr. Nba Sanchez 5. Hospital Medicine, Dr. Miki Briones, Dr. Juwan Nava, Dr. Demetrio Herman 6. Cardiology, Dr. Mario Garcia & Dr. Carl Burton MEDICATIONS ON ADMISSION: 1. Aspirin 81 mg PO daily 2. Mycophenolate Mofetil 1,000 mg PO BID 3. Plaquenil 200 mg PO BID 4. Liptor 40 mg PO HS 5. Norvasc 5 mg PO daily 6. Doxycycline 50 mg PO BID 7. Ramipril 5 mg PO daily ALLERGIES/SENSITIVITIES: Contrast dye DISCHARGE MEDICATIONS: STOP these medications: 1. Liptor 40 mg PO HS (d/t elevated LFTs) 2. Norvasc 5 mg PO daily 3. Ramipril 5 mg PO daily 4. Mycophenolate Mofetil 1,000 mg PO BID (restart when okay with ID) CONTINUE these medications: 1. Aspirin 81 mg PO daily 2. Plaquenil 200 mg PO BID 3. Doxycycline 50 mg PO BID NEW medications: 1. Coumadin 2.5 mg PO daily for a target INR 2-3 for 8 weeks. 2. Metoprolol Tartrate 25 mg PO BID 3. Tramadol 50 mg PO q6hrs PRN pain 4. Clotrimazole 10 mg PO 5XD luis miguel for 12 days 5. Ceftriaxone 2 gm IV q12 per ID 6. Benadryl 25 mg PO q6hrs prn itching 7. Tylenol OTC DISCHARGE CLINICAL INFORMATION: Sternum grossly stable. Sternotomy CDI, sutured, +Dermabond. EVH left thigh CDI HR 70. BP 131/73. SpO2 99% 2L (chronic) . Euvolemic WBC 8.69, Hgb 9.3, HCT 27.5, Plt 129 , Na 135 , K 3.8, Cr 0.7 INR 1.94 FOLLOW UP APPOINTMENTS: 1. CV surgery: with Dr. Sanchez at [facility] on 05/30/18 @ 10 AM. 2. Cardiology: with Dr. Mario Garcia/Dr. Carl Burton at [facility] within 4 -6 weeks. Appointment to be established during surgical visit. 3. Follow up with your primary care physician in [address] Eddie Morejon. 4. Follow up with Infectious Diseases Dr. Herbert Bryant 05/30/18 @ 11 AM FOLLOW UP TESTING: CXR prior to surgical appointment. Labs CBC, CMP, CRP ordered by ID
--- NOTE | 2018-05-23 10:39 | ASMTCMCOM ---
CM Note CM Note Notes: Spoke w/, pt will need IV abx at dc, may go home tomorrow. Referral sent to [facility], pt is otherwise independent, CM w/f. DC Plan: [facility] Date Signed: 05/23/2018 10:38 AM Electronically Signed By:Karie Dean
--- NOTE | 2018-05-23 10:39 | ASMTLACE ---
LACE Length of stay for Answers: 14 days or more current admission Acuity / Level of Answers: Yes Care: Did the patient have an inpatient admission? Comorbidities - select Answers: Opioid dependence all that apply / Chronic pain Other Notes: Hx of lupus; DVT # of Emergency department Answers: 1-2 visits in the last 6 months Score: 16 Date Signed: 05/23/2018 10:38 AM Electronically Signed By:Karie Dean
--- NOTE | 2018-05-23 10:40 | ASMTDCNOTE ---
Case Management Discharge Discharge Order Complete? Answers: Yes Patient to Obtain Answers: Other Notes: [facility] Medications Transportation Arranged Answers: Other Notes: [facility] Transport will Pick (Date 05/23/2018 11:30 AM & Time) Faxed Final Orders Answers: Yes Agency/Facility Transfer Answers: Yes Report Printed & Faxed to Receiving Agency Family Notified Answers: Yes Discharge Comments Notes: Pt being transported to [facility]. Date Signed: 05/23/2018 10:40 AM Electronically Signed By:Karie Dean
[2018-05-24] MEDS ORDERED: WARFARIN SODIUM 2.5 MG TAB PO SCH (16:00)
--- NOTE | 2018-05-25 09:52 | ASDISCHSUM ---
Discharge Information Plan Status:SNF Medically Cleared to Leave:05/22/2018 Discharge Date:05/23/2018 11:50 AM D/C Disposition:Alf Facility ADT D/C Disposition:Alf Facility Projected Discharge Date:05/22/2018 11:00 AM Transportation at D/C:Wheelchair Van Discharge Delay Reason: Follow-Up Date:05/22/2018 11:00 AM Discharge Slot: Final Diagnosis: Placement Information Referral Type:Home Infusion Referral ID:[id number] Provider Name: Address 1: Phone Number: Address 2: Fax Number: City: Selection Factors: State: Referral Type:*Home Health Care Services Referral ID:[id number] Provider Name: Address 1: Phone Number: Address 2: Fax Number: City: Selection Factors: State: Referral Type:*Usp/SNF Referral ID:[id number] Provider Name:[facility] Address 1:[address] Address 2: City:[place] Selection Factors: State:[place] Patient Contact Information Contact Name:GURWINDER Relationship: Address:[address] Work Phone: City:[place] [facility] Phone: [facility]/Zip Code:[place] [address] Email: Financial Information Financial Class:[employer] Primary Plan Desc:[employer] Primary Plan Number:[id number] Secondary Plan Desc: Secondary Plan Number: Assessment Information LACE LACE Length of stay for Answers: 14 days or more current admission Acuity / Level of Answers: Yes Care: Did the patient have an inpatient admission? Comorbidities - select Answers: Opioid dependence all that apply / Chronic pain Other Notes: Hx of lupus; DVT # of Emergency department Answers: 1-2 visits in the last 6 months Score: 16 Date Signed: 05/23/2018 10:38 AM Electronically Signed By:Karie Dean [facility] CM Progress Note CM Note CM Note Notes: Pt is a 72 y/o man admitted for meningitis. Pt has a hx of lupus, plaquenil and mycophenolate. ID has been consulted. Needs are TBD at this time. CM to follow. Plan: TBD Date Signed: 05/10/2018 12:15 PM Electronically Signed By:HECTOR Charles [facility] CM Progress Note CM Note CM Note Notes: Pt lives independently at his home with his , Yeni #[phone]. 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 Antibiotics are presently PO. No CM needs anticipated. CM will follow for changes. D/C plan: Anticipate independent. Date Signed: 05/11/2018 04:57 PM Electronically Signed By:Karie Dean [facility] CM Progress Note CM Note CM Note Notes: Pt had cardiology work up and has vegetation on mitral valve. Sounds like they will take a medical approach 1st. Pt still considered independent and will dc home w/support of when medically stable. CM available for any changes. DC Plan: Independent Date Signed: 05/12/2018 03:14 PM Electronically Signed By:Candace Díaz RN [facility] CM Progress Note CM Note CM Note Notes: Spoke w/MD, pt will need IV abx at [facility], may go home tomorrow. Referral sent to [facility], pt is otherwise independent, DEAN w/f. [place] [facility] Date Signed: 05/23/2018 10:38 AM Electronically Signed By:Karie Dean [facility] CM Progress Note CM Note CM Note Notes: CM spoke to Dr. Herman regarding d/c POC. Pt will require ivabx at time of d/c. Referral made to [facility] and [facility]. Both are able to accept. Nataly from [facility] met w/ pt today. CM to follow. Plan: [facility]/ [facility]; RN Date Signed: 05/15/2018 11:22 AM Electronically Signed By:HECTOR Charles [facility] CM Progress Note CM Note CM Note Notes: Pt admitted for suspected meningitis, bacteremia and cervical abscess in the setting of lupus on immunosupressive drugs. Pt then had open heart surgery on 05/17 for mitral valve repair and CABG. Pt to transfer to PCU likely today. ID following; pt on IV ABX which will likely continue after discharge. Referrals have been sent to [facility] and [facility] and have been accepted. PT and OT eligio pending. Pt lives in [place] with his Chica. CM to follow. D/C Plan: Home infusion with [facility] and [facility] v SNF pending PT/OT evals Date Signed: 05/18/2018 11:25 AM Electronically Signed By:Lucy Fields [facility] DEAN Progress Note CM Note CM Note Notes: I met with patient and . is concerned about her ability to care for patient when he is discharged. We talked about SNF rehab v hiring private duty care at home. She will visit [facility] and [facility] today and let us know if that is what she wants. I sent referrals to both facilities; they will have to request insurance authorization from [facility] if patient chooses to admit. We will follow up with patient and first thing tomorrow since CT surgery is eager to discharge. Date Signed: 05/21/2018 01:45 PM Electronically Signed By:Erin Ross RN [facility] DEAN Progress Note CM Note CM Note Notes: D/W PA, patient appropriate for SNF at this time. Met with patient and spoke with patient's via phone #[phone], they have chosen [facility], MARIO ALBERTO Garsia okay with this SNF plan. Updated therapy notes sent to [facility] for Ilene requesting they start insurance auth. CM will follow. Plan: [facility] when auth rec'd. Date Signed: 05/22/2018 12:12 PM Electronically Signed By:Mary Kate Johnson RN [facility] CM Progress Note CM Note CM Note Notes: CM spoke with Ilene at [facility]. Auth rec'd. Notified MARIO ALBERTO, will plan for D/C on Tuesday. Laure smith [facility] updated on pt's discharge plan. CM will follow. Plan: [facility] on Tuesday. Date Signed: 05/22/2018 02:53 PM Electronically Signed By:Mary Kate Johnson RN Case Management Discharge Plan Note Case Management Discharge Discharge Order Complete? Answers: Yes Patient to Obtain Answers: Other Notes: [facility] Medications Transportation Arranged Answers: Other Notes: [facility] Transport will Pick (Date 05/23/2018 11:30 AM & Time) Faxed Final Orders Answers: Yes Agency/Facility Transfer Answers: Yes Report Printed & Faxed to Receiving Agency Family Notified Answers: Yes Discharge Comments Notes: Pt being transported to [facility]. Date Signed: 05/23/2018 10:40 AM Electronically Signed By:Karie Dean Intervention Information
--- NOTE | 2018-05-26 10:34 | ECHO ---
[email or web address] [address] Main: [phone] Fax: Transthoracic Echocardiogram Name: MY HOLM MR#: [id number] Study Date: 05/19/2018 Study Time: 09:00 AM Date of : 1945 Age: 72 year(s) Height: 175.3 cm (69 in.) Weight: 78.02 kg (172 lb.) BSA: 1.94 m2 Gender: Male Examination: Echo Indication: baseline postop echo, s/p MVR #27 CE magna bioprosthesis Image Quality: Adequate Contrast: Requested by: Lauren Amador BP: / Heart Rate: Rhythm: Indication: baseline postop echo, s/p MVR #27 CE magna bioprosthesis Procedure Staff Senior Infrastructure Engineer: Zari Wei RDCS Reading Physician: Tanner Mancia MD Requesting Provider: Conclusions: 1)Technically limited echo. 2)Normal LV size and systolic function with a LVEF of 58% and paradoxical septal motion consistent with previous cardiac surgery. 3)Mild-moderate concentric LVH with diastolic dysfunction noted. 4)Mild to moderate left atrial enlargement noted. 5)Aortic valve sclerosis with trivial AI and no . 6)Bioprosthetic MVR with normal gradient and trivial to mild MR. Fibrinous material seen on MV but no obvious vegatations. 7)Mild to moderate TR with estimated normal PA pressures. 8)Trivial circumferential pericardial effusion with no tamponade. Measurements: Chambers Valvular Assessment AV/MV Valvular Assessment TV/PV Normal Normal Normal Name Value Range Name Value Range Name Value Range Ao Kavita (2D): 3.6 cm (1.4 cm-2.6 AV Vmax: 1.68 m/s (1 m/s-1.7 TR Vmax: 2.61 mm/s ( - ) cm) m/s) TR PGmax: 27 mmHg ( - ) IVSd (2D): 1.1 cm (0.6 cm-1.1 AV maxP mmHg ( - ) syst. PAP: 32 mmHg ( - ) cm) AV meanP mmHg ( - ) PV Vmax: 0.88 m/s (0.6 m/s-0.9 LVDd (2D): 4.1 cm (4.2 cm-5.9 PETER (VTI): 2.4 cm ( - ) m/s) cm) MV E Vmax: 1.54 m/s ( - ) PV PGmax: 3 mmHg ( - ) LVDs (2D): 2.6 cm (2.1 cm-4 MV A Vmax: 1.08 m/s ( - ) cm) MV E/A: 1.43 ( - ) LVPWd (2D): 1.3 cm (0.6 cm-1 cm) MV meanP mmHg ( - ) LVOTd 2.1 cm 2.1 cm mm MV PHT: 0.091 s ( - ) LVEF (BP): 58 % (>=55 %) MVA (Vmax): 1.2 m/s ( - ) RVDd(2D): 3.2 cm (1.9 cm-3.8 MVA (PHT): 2.4 s ( - ) cmmm) Patient: MY HOLM Study Date: 05/19/2018 Page 1 of 2 09:00 AM Continued Measurements: Chambers Valvular Assessment AV/MV Valvular Assessment TV/PV Name Value Name Value Name Value LADs: 3.8 cm MV DecTime: 327 m/s CVP (est.): 5 mmHg LADs Lon.4 cm MV E/E' Lateral: 20.00 LA Area: 24.0 cm2 MV VTI: 54.60 cm LA Volume: 80 ml LA Volume Index: 41.2 ml/m2 RA Area: 17.9 cm2 Additional Vessels Name Value Ao Ascendin.6 cm Inferior Vena Cava: 1.9 cm Findings: Left Ventricle: Normal size left ventricle. Mild concentric LV hypertrophy. Normal global systolic LV function. EF is 58 %. No regional wall motion abnormality. Diastolic dysfunction is present. . Right Ventricle: Normal size right ventricle. Normal RV function. Left Atrium: The left atrium is mildly to moderately dilated. Right Atrium: The right atrium is normal in size. Mitral Valve: A bioprothetic mitral valve is in place. The mitral valve prosthesis exhibits normal function. The prosthetic mitral valve is normal. Prosthetic mitral valve orifice motion is normal. Mild MV prosthesis regurgitation. #27 CE magna. Aortic Valve: The aortic valve is tri-leaflet. Aortic sclerosis is present. Trivial aortic valve regurgitation. No aortic valve stenosis is present. Tricuspid Valve: The tricuspid valve is normal in appearance and function. Mild to moderate tricuspid valve regurgitation. The pulmonary artery pressure is normal. Right ventricular systolic pressure measures 32mmHg. Pulmonic Valve: The pulmonic valve is normal in appearance and function. Trivial pulmonic valve regurgitation. Aorta: The aorta is normal. Normal size aortic root measuring 4.0 cm, measuring 3.6 cm. Normal size ascending aorta measuring 3.6 cm. IVC: The IVC is normal sized. Pericardium: Trivial pericardial effusion. No pleural effusion. Exam Comments: First part of echo performed by Reji 05/21. Imaging on 05/22/2018 is labeled. (No Signature Object) Patient: MY HOLM Study Date: 05/19/2018 Page 2 of 2 09:00 AM [id number]
== END 2018-05-23 11:50 | DRG 216 ==
LOC: F3E 21:30 → F2W 05-16 14:34 → F2N 05-17 11:09 → F2W 05-18 16:05
PROVIDERS: ADMIT Family Medicine; ATTEND Thoracic Surgery (Cardiothoracic Vascular Surgery)
PROC: 009U3ZX Drainage of Spinal Canal, Percutaneous Approach, Diagnostic (ICD-10-PCS; 2018-05-09)
PROC: B246ZZ4 Ultrasonography of Right and Left Heart, Transesophageal (ICD-10-PCS; 2018-05-12)
PROC: 02HV33Z Insertion of Infusion Device into Superior Vena Cava, Percutaneous Approach (ICD-10-PCS; 2018-05-13)
PROC: 4A023N7 Measurement of Cardiac Sampling and Pressure, Left Heart, Percutaneous Approach (ICD-10-PCS; 2018-05-16)
PROC: B2111ZZ Fluoroscopy of Multiple Coronary Arteries using Low Osmolar Contrast (ICD-10-PCS; 2018-05-16)
PROC: 30233K1 Transfusion of Nonautologous Frozen Plasma into Peripheral Vein, Percutaneous Approach (ICD-10-PCS; 2018-05-17)
PROC: 30233R1 Transfusion of Nonautologous Platelets into Peripheral Vein, Percutaneous Approach (ICD-10-PCS; 2018-05-17)
PROC: 021009W Bypass Coronary Artery, One Artery from Aorta with Autologous Venous Tissue, Open Approach (ICD-10-PCS; principal; 2018-05-17 11:30)
PROC: 06BQ4ZZ Excision of Left Saphenous Vein, Percutaneous Endoscopic Approach (ICD-10-PCS; principal; 2018-05-17 11:30)
PROC: 02RG08Z Replacement of Mitral Valve with Zooplastic Tissue, Open Approach (ICD-10-PCS; principal; 2018-05-17 11:30)
PROC: 5A1221Z Performance of Cardiac Output, Continuous (ICD-10-PCS; principal; 2018-05-17 11:30)
PROC: 30233N1 Transfusion of Nonautologous Red Blood Cells into Peripheral Vein, Percutaneous Approach (ICD-10-PCS; 2018-05-18)
DX: I33.0 Acute and subacute infective endocarditis (principal); R78.81 Bacteremia; B95.4 Other streptococcus as the cause of diseases classified elsewhere; I34.0 Nonrheumatic mitral (valve) insufficiency; M60.08 Infective myositis, other site; G06.1 Intraspinal abscess and granuloma; I76 Septic arterial embolism; I74.8 Embolism and thrombosis of other arteries; E87.1 Hypo-osmolality and hyponatremia; D62 Acute posthemorrhagic anemia; D69.59 Other secondary thrombocytopenia; I25.10 Atherosclerotic heart disease of native coronary artery without angina pectoris; B37.0 Candidal stomatitis; M32.13 Lung involvement in systemic lupus erythematosus; Z79.899 Other long term (current) drug therapy; I10 Essential (primary) hypertension; E78.5 Hyperlipidemia, unspecified
CPT/HCPCS: 82435-PO; 82565-PO; 82947-PO; 83605-PO; 84132-PO; 84295-PO; 84520-PO; 85014-PO; 97116-GP; 97161-GP; 97166-GO; 97530-GO; 97530-GP; 97535-GO; A9585; C1751; C1768; C1769; J0153; J0282; J0290; J0360; J0690; J0696; J1100; J1200; J1250; J1265; J1644; J1815; J1940; J2001; J2150; J2250; J2260; J2270; J2370; J2405; J2704; J2720; J2765; J2930; J3010; J3360; J3370; J3475; J3480; P9016; P9017; P9035; P9041; Q9967

== ENCOUNTER → 2018-05-30 | Outpatient (CLI) | payer OTHER | LOC: FIMAGING 09:40 | PROVIDERS: ATTEND Thoracic Surgery (Cardiothoracic Vascular Surgery) | DX: Z48.812 Encounter for surgical aftercare following surgery on the circulatory system (principal); I51.7 Cardiomegaly; J81.1 Chronic pulmonary edema; J84.10 Pulmonary fibrosis, unspecified; M47.894 Other spondylosis, thoracic region; Z95.1 Presence of aortocoronary bypass graft; Z95.2 Presence of prosthetic heart valve ==

== ENCOUNTER → 2018-06-22 | Outpatient (CLI) | payer OTHER ==
[~2018-06-22] MED LIST: GADOBUTROL 10 ML VIAL IVP ONE
== END ==
LOC: FIMAGING 07:04
PROVIDERS: ATTEND Internal Medicine Infectious Disease
DX: M60.9 Myositis, unspecified (principal); R60.9 Edema, unspecified; M53.86 Other specified dorsopathies, lumbar region; M51.36 Other intervertebral disc degeneration, lumbar region
CPT/HCPCS: A9585

== ENCOUNTER → 2018-07-05 | Outpatient (CLI) | payer OTHER | LOC: FIMAGING 16:01 | PROVIDERS: ATTEND Internal Medicine Infectious Disease | DX: G06.2 Extradural and subdural abscess, unspecified (principal); M50.30 Other cervical disc degeneration, unspecified cervical region | CPT/HCPCS: A9585 ==

== ENCOUNTER → 2018-09-22 | Outpatient (CLI) | payer OTHER | LOC: FIMAGING 11:27 | PROVIDERS: ATTEND Internal Medicine | DX: R22.42 Localized swelling, mass and lump, left lower limb (principal) ==